=== PATIENT | female | born 1940 | race Caucasian/White ===

== ENCOUNTER → 2017-04-18 | Outpatient (CLI) | payer OTHER, MEDICARE ==
[~2017-04-18] MED LIST: ACETAMINOPHEN-1 EAC1 PO; AMBIEN 5 MG TABL5 M1 PO; ANTACID SUSPEN355 M1 PO; APAP500 PO; ASPIR 8181 M1 PO; B-50 COMPLEX1 EAC1 PO; BACTRIM DS TAB1 EACH PO; BALANCE B-1001 EACH PO; BENADRYL25 MG PO; CALTRATE-600 W1 EACH PO; CELEXA10 MG PO; CENTRUM COMPLE1 EACH PO; CENTRUM SILVER1 EAC4 PO; CHONDROITIN SU500 G1 MC; COLACE100 MG PO; COREG6.25 MG PO; D-20002000 UNIT PO; FENOFIBRATE145 M1 PO; FOLGARD TABLET1 EAC1 PO; FUROSEMIDE 40 M40 M1 PO; GLUCOPHAGE XR500 MG PO; GLUCOSAMINE CH1 EAC2 PO; GLUCOSAMINE HC500 MG PO; HYDRALAZINE 10M10 MG PO; HYDROCODONE-AP1 EAC6 PO; IBUPROFEN 200200 M1 PO; LANSOPRAZOLE15 MG PO; LASIX 40 MG TAB40 M2 PO; LAXATIVE5 M1 PO; LISINOPRIL10 MG PO; LISINOPRIL20 MG PO; LISINOPRIL5 MG PO; MEDROL32 MG; MELATONIN10 M1 PO; MIRALAX17 GM PO; NORVASC5 MG PO; OCEAN104 ML NASAL; PENTOXIFYLLINE400 MG PO; PHENERGAN 25 MG25 M1 PO; PLAVIX 75 MG TA75 M1 PO; POTASSIUM20 PO; PREDNISONE 10 M10 MG PO; PREVACID 24HR15 MG PO; PROVENTIL HFA6.7 G1 INH; PSYLLIUM FIBE0.52 GM PO; REMERON15 M2 PO; REMERON15 MG PO; RIFAMPIN 300 M300 M1 PO; SPIRONOLACTONE25 M1 PO; TRICOR145 MG PO; TUMS PO; TYLENOL EXTRA500 MG PO; TYLENOL325 MG PO; UNICOMPLEX M TA1 TA1 PO; VANCO 750750 MG/250 IV; VITAMINC500 PO; ZYRTEC10 M5 PO; [UNRECOGNIZED DRUG - OTHER] PO
== END ==
LOC: M.WC 01:24
DX: E11.621 Type 2 diabetes mellitus with foot ulcer (principal); L97.511 Non-pressure chronic ulcer of other part of right foot limited to breakdown of skin; L97.521 Non-pressure chronic ulcer of other part of left foot limited to breakdown of skin; I70.245 Atherosclerosis of native arteries of left leg with ulceration of other part of foot; I87.312 Chronic venous hypertension (idiopathic) with ulcer of left lower extremity; I11.0 Hypertensive heart disease with heart failure; I50.9 Heart failure, unspecified; E11.36 Type 2 diabetes mellitus with diabetic cataract; J45.909 Unspecified asthma, uncomplicated; M06.9 Rheumatoid arthritis, unspecified; F17.200 Nicotine dependence, unspecified, uncomplicated

== ENCOUNTER → 2017-05-02 | Outpatient (CLI) | payer OTHER, MEDICARE | LOC: M.WC 04-25 10:00 | DX: E11.621 Type 2 diabetes mellitus with foot ulcer (principal); L97.511 Non-pressure chronic ulcer of other part of right foot limited to breakdown of skin; L97.521 Non-pressure chronic ulcer of other part of left foot limited to breakdown of skin; E11.36 Type 2 diabetes mellitus with diabetic cataract; I11.0 Hypertensive heart disease with heart failure; I50.9 Heart failure, unspecified; M06.9 Rheumatoid arthritis, unspecified; J45.909 Unspecified asthma, uncomplicated; F17.200 Nicotine dependence, unspecified, uncomplicated ==

== ENCOUNTER → 2017-05-09 | Outpatient (CLI) | payer OTHER, MEDICARE | LOC: M.WC 01:36 | DX: E11.621 Type 2 diabetes mellitus with foot ulcer (principal); I70.245 Atherosclerosis of native arteries of left leg with ulceration of other part of foot; I70.235 Atherosclerosis of native arteries of right leg with ulceration of other part of foot; I87.313 Chronic venous hypertension (idiopathic) with ulcer of bilateral lower extremity; L97.511 Non-pressure chronic ulcer of other part of right foot limited to breakdown of skin; L97.521 Non-pressure chronic ulcer of other part of left foot limited to breakdown of skin; E11.36 Type 2 diabetes mellitus with diabetic cataract; I11.0 Hypertensive heart disease with heart failure; I50.9 Heart failure, unspecified; M06.9 Rheumatoid arthritis, unspecified; J45.909 Unspecified asthma, uncomplicated; F17.200 Nicotine dependence, unspecified, uncomplicated ==

== ENCOUNTER 2017-05-16 14:03 | Inpatient (IN) | payer MEDICARE, OTHER ==
[~2017-05-16] VITALS: Ht 157.5 cm; Wt 86.6 kg
--- NOTE | ~2017-05-16 | EKG ---
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: : 1940 Requested By: Ebony Novak Order Number: [id number] Reading MD: Measurements Intervals Lillie Rate: 56 P: 14 IN: 186 QRS: -34 QRSD: 128 T: 61 QT: 497 QTc: 480 Interpretive Statements Sinus rhythm Atrial premature complexes in couplets Sinus pause Right bundle branch block Inferior infarct, old Compared to ECG 05/16/2017 14:26:50 Atrial premature complex(es) now present Sinus pause or arrest now present Myocardial infarct finding now present First degree AV block no longer present [email or web address] By: [id number] [place], [place] /EPI
--- NOTE | ~2017-05-16 | EKG ---
[place] [address] ELECTROCARDIOGRAM REPORT Name: TAMARA MOREAU Room: [place] [address] ADM IN .R.#: [id number] Admission: 05/16/17 Attend Phys: Chace Goodman Discharge: Date of : 40 Report #: [id number] THIS REPORT FOR: //name// [facility] ED Test Date: 2017-05-16 Test Time: 14:26:50 Pat Name: TAMARA MOREAU Department: Room: [facility] Gender: F Glost Kiln Operator: Sally WALLACE : 1940 Requested By: Maximiliano Gloria Order Number: [id number] MD: Measurements Intervals [place] Rate: 70 P: 15 OK: 212 QRS: -28 QRSD: 135 T: 29 QT: 405 QTc: 437 Interpretive Statements Sinus rhythm Borderline prolonged OK interval Right bundle branch block Compared to ECG 04/15/2009 11:01:47 Sinus arrhythmia no longer present Left anterior fascicular block no longer present Bifascicular block no longer present Myocardial infarct finding no longer present [email or web address] By: [id number] [id number] [place], [place] /AUTUMN
[~2017-05-16 14:03] MED LIST changes: -ACETAMINOPHEN-1 EAC1 PO; -AMBIEN 5 MG TABL5 M1 PO; -ANTACID SUSPEN355 M1 PO; -BACTRIM DS TAB1 EACH PO; -BALANCE B-1001 EACH PO; -BENADRYL25 MG PO; -CELEXA10 MG PO; -CENTRUM SILVER1 EAC4 PO; -COLACE100 MG PO; -FENOFIBRATE145 M1 PO; -FOLGARD TABLET1 EAC1 PO; -FUROSEMIDE 40 M40 M1 PO; -GLUCOSAMINE CH1 EAC2 PO; -HYDRALAZINE 10M10 MG PO; -LAXATIVE5 M1 PO; -LISINOPRIL10 MG PO; -LISINOPRIL5 MG PO; -MELATONIN10 M1 PO; -MIRALAX17 GM PO; -NORVASC5 MG PO; -OCEAN104 ML NASAL; -PHENERGAN 25 MG25 M1 PO; -PREVACID 24HR15 MG PO; -PSYLLIUM FIBE0.52 GM PO; -REMERON15 M2 PO; -RIFAMPIN 300 M300 M1 PO; -SPIRONOLACTONE25 M1 PO; -TRICOR145 MG PO; -TUMS PO; -TYLENOL EXTRA500 MG PO; -TYLENOL325 MG PO; -UNICOMPLEX M TA1 TA1 PO; -VANCO 750750 MG/250 IV; -[UNRECOGNIZED DRUG - OTHER] PO
[2017-05-16 14:08] VITALS: BP 145/46
[2017-05-16] MEDS ORDERED: SPIRONOLACTONE25 M1 PO (14:26)
[2017-05-16] MEDS ORDERED: HYDRALAZINE 10M10 MG PO (14:26)
[2017-05-16] MEDS ORDERED: TRICOR145 MG PO (14:27)
[2017-05-16] MEDS ORDERED: NORVASC5 MG PO (14:27)
[2017-05-16 14:28] LABS: ABSOLUTE EOSINOPHILS 0.1 thou/uL (0.0-0.7); ABSOLUTE LYMPHOCYTES 0.7 thou/uL (0.8-5.3); ABSOLUTE MONOCYTES 0.3 thou/uL (0.0-1.2); BASOPHILS 0.9 %; EOSINOPHILS 1.9 %; HEMATOCRIT 34.6 % (37.0-47.0); HEMOGLOBIN 10.9 gm/dL (12.0-15.0); LYMPHOCYTES 13.2 %; MCH 29.2 pg (26.0-34.0); MCHC 31.6 g/dL (28.0-37.0); MCV 92.6 fL (80.0-100.0); MONOCYTES 5.9 %; MPV 9.4 fl. (7.2-11.1); NUCLEATED RBCS 0 /100WBC; PLATELET COUNT* 104 thou/uL (150-400); POLYS 78.1 %; RBC 3.74 mil/uL (4.20-5.00); RDW-CV 15.4 % (10.5-14.5); WBC 5.2 thou/uL (4.0-11.0)
[2017-05-16] MEDS ORDERED: CENTRUM SILVER1 EAC4 PO (14:29)
[2017-05-16] MEDS ORDERED: GLUCOSAMINE CH1 EAC2 PO (14:30)
[2017-05-16 14:33] LABS: ANION GAP 10 mmol/L (7-16); BUN 55 mg/dL (7-18); CHLORIDE 106 mmol/L (98-107); CO2 24 mmol/L (21-32); CREATININE 3.2 mg/dL (0.6-1.3); GLUCOSE 114 mg/dL (70-99); POTASSIUM 5.3 mmol/L (3.5-5.1); SODIUM 140 mmol/L (136-145)
[2017-05-16] MEDS ORDERED: BALANCE B-1001 EACH PO (14:34)
[2017-05-16 14:36] LABS: INR 1.3; PROTIME 12.3 Seconds (9.20-11.50)
[2017-05-16] MEDS ORDERED: [UNRECOGNIZED DRUG - OTHER] PO (14:38)
[2017-05-16] MEDS ORDERED: TYLENOL EXTRA500 MG PO (14:41)
[2017-05-16] MEDS ORDERED: BACTRIM DS TAB1 EACH PO (14:42)
[2017-05-16] MEDS ORDERED: BENADRYL25 MG PO (14:42)
[2017-05-16 14:43] LABS: ALBUMIN 3.7 g/dL (3.4-5.0); ALKALINE PHOSPHATASE 51 U/L (46-116); NT-PRO BRAIN NAT PEPTIDE 2595 pg/mL (<300); SGOT 23 U/L (15-37); SGPT 13 U/L (30-65); TOTAL BILIRUBIN 0.3 mg/dL (<0.1-1.0); TROPONIN-I LEVEL <0.06 ng/mL (<0.06)
[2017-05-16 18:39] VITALS: BP 147/36
[2017-05-16 20:00] VITALS: BP 160/47
[2017-05-17] VITALS: BP 128/47
[2017-05-17 02:47] LABS: HEMATOCRIT 30.8 % (37.0-47.0); HEMOGLOBIN 9.9 gm/dL (12.0-15.0); MCH 29.2 pg (26.0-34.0); MCV 91.4 fL (80.0-100.0); RBC 3.37 mil/uL (4.20-5.00); RDW-CV 15.2 % (10.5-14.5); WBC 4.5 thou/uL (4.0-11.0)
[2017-05-17 02:56] LABS: CALCIUM 8.5 mg/dL (8.5-10.1); POTASSIUM 5.5 mmol/L (3.5-5.1)
[2017-05-17 04:00] VITALS: BP 108/40
[2017-05-17 08:04] VITALS: BP 104/32
[2017-05-17 11:48] VITALS: BP 125/31
[2017-05-17 12:13] LABS: URINE BILIRUBIN NEGATIVE (Negative); URINE BLOOD NEGATIVE (Negative); URINE CLARITY SL CLOUDY; URINE COLOR YELLOW; URINE GLUCOSE-RANDOM NEGATIVE (Negative); URINE KETONES NEGATIVE (Negative); URINE LEUKOCYTES 1+ (Negative); URINE NITRITE NEGATIVE (Negative); URINE PROTEIN NEGATIVE (Negative); URINE SPECIFIC GRAVITY 1.025 (1.005-1.030); URINE UROBILINOGEN 0.2 E.U./dl (0.2-1.0)
[2017-05-17 12:16] LABS: BACTERIA 1-9 Few /HPF (None Seen); CASTS None Seen /LPF (None Seen); CRYSTALS None Seen /LPF (None Seen); SQUAMOUS >10 Many /LPF (0-3); TRANSITIONAL EPITHEL CELL 0-3 Few /LPF (None Seen); URINE RBC 3-10 Few /HPF (0-2)
[2017-05-17 15:23] VITALS: BP 100/34
--- NOTE | 2017-05-17 16:32 | 2DMMODE ---
[place] [address] 2 D/M-MODE ECHOCARDIOGRAM Name: LIZZETHTAMARA M Room: [place] [address] ADM IN [facility]#: [id number] Admission: 05/16/17 Attend Phys: Ebony Novak Discharge: Date of : 40 Date of Service: 05/17/17 1632 Report #: [id number] THIS REPORT FOR: //name// ADDENDUM APPROVED REPORT Study performed: 05/17/2017 15:10:47 EXAM: Comprehensive 2D, Doppler, and color-flow Echocardiogram Patient Location: In-Patient Room #: [facility] Status: routine BSA: 1.86 HR: 78 bpm BP: 104/32 mmHg Rhythm: NSR Other Information Study Quality: Good Indications Congestive Heart Failure Dyspnea Hypertension/HDD 2D Dimensions LVEF(%): 72.97 (>50%) IVSd: 14.47 (7-11mm) LVOT Diam: 20.22 (18-24mm) LVDd: 38.26 mm PWd: 13.53 (7-11mm) Ascending Ao: 46.68 (22-36mm) LVDs: 22.43 (25-40mm) Aortic Root: 34.70 mm Lopes's LVEF: 72.97 % Volumes Left Atrial Volume (Systole) LA ESV Index: 45.20 mL/m2 Aortic Valve AoV Peak Vamsi.: 1.93 m/s AO Peak Gr.: 14.87 mmHg LVOT Max P.73 mmHg AO Mean Gr.: 7.59 mmHg LVOT Mean P.21 mmHg LVOT Max V: 1.30 m/s AO V2 VTI: 42.04 cm LVOT Mean V: 0.82 m/s SELMA (VTI): 2.27 cm2 LVOT V1 VTI: 29.66 cm AI [place]: 2.28 m/s2 [place] [address] 2 D/M-MODE ECHOCARDIOGRAM Name: TAMARA MOREAU Room: [address] IN .R.#: [id number] Admission: 05/16/17 Attend Phys: Ebony Novak Discharge: Date of : 40 Date of Service: 05/17/17 1632 Report #: [id number] AI PHT: 411.99 ms Mitral Valve E/A Ratio: 2.04 MV Decel. Time: 190.62 ms MV E Max Vamsi.: 1.39 m/s MV PHT: 55.28 ms MVA (PHT): 3.98 cm2 TDI E/Lateral E': 17.38 E/Medial E': 17.38 Medial E' Vamsi.: 0.08 m/s Lateral E' Vamsi.: 0.08 m/s Pulmonary Valve PV Peak Vamsi.: 1.09 m/s PV Peak Gr.: 4.79 mmHg Tricuspid Valve TR Peak Gr.: 18.79 mmHg RVSP: 23.00 mmHg Left Ventricle The left ventricle is normal size. There is normal LV segmental wall motion. Mild concentric left ventricular hypertrophy. Left ventricular systolic function is normal. LVEF is >70%. Severe diastolic dysfunction is present (restrictive filling). Right Ventricle The right ventricle is normal size. The right ventricular systolic function is normal. Atria Left atrium is moderately dilated. The right atrium size is normal. Aortic Valve Mild aortic valve sclerosis. Moderate aortic regurgitation. There is no aortic valvular stenosis. Mitral Valve There is mitral annular calcification. Mild mitral regurgitation. No evidence of mitral valve stenosis. Tricuspid Valve The tricuspid valve is normal in structure. Trace tricuspid regurgitation. The RVSP is ____23___ [place] [address] 2 D/M-MODE ECHOCARDIOGRAM Name: TAMARA MOREAU Room: [address] IN [facility]#: [id number] Admission: 05/16/17 Attend Phys: Ebony Novak Discharge: Date of : 40 Date of Service: 05/17/17 1632 Report #: [id number] Pulmonic Valve The pulmonary valve is normal in structure. There is no pulmonic valvular regurgitation. Great Vessels Aortic root is moderately dilated. IVC is normal in size and collapses with >50% inspiration Pericardium There is no pericardial effusion. <Conclusion> The left ventricle is normal size. Mild concentric left ventricular hypertrophy. Left ventricular systolic function is normal. LVEF is >70%. Severe diastolic dysfunction is present (restrictive filling). Left atrium is moderately dilated. Mild aortic valve sclerosis. Moderate aortic regurgitation. Mild mitral regurgitation. Trace tricuspid regurgitation. The RVSP is ____23___ mmHg. Aortic root is moderately dilated. <ELECTRONICALLY SIGNED> By: Saurabh Chávez MD, FACC 05/17/17 163 31 31 Saurabh Chávez MD, FACC /INF
[2017-05-17 20:00] VITALS: BP 106/39
[2017-05-18 00:02] VITALS: BP 98/32
[2017-05-18 04:00] VITALS: BP 95/32
[2017-05-18 05:44] LABS: ALBUMIN 3.1 g/dL (3.4-5.0); CALCIUM 8.5 mg/dL (8.5-10.1); CREATININE 3.4 mg/dL (0.6-1.3); POTASSIUM 5.7 mmol/L (3.5-5.1); TOTAL BILIRUBIN 0.3 mg/dL (<0.1-1.0); TOTAL PROTEIN 6.9 g/dL (6.4-8.2)
--- NOTE | 2017-05-18 07:30 | CON ---
[address] [address] CONSULTATION Name: TAMARA MOREAU Room: [place] [address] ADM IN .R.#: [id number] Admission: 05/16/17 Attend Phys: Chace Goodman Discharge: Date of : 40 Report #: [id number] THIS REPORT FOR: //name// CC: Elizabeth Rojas MD [facility] Ebony Novak TYPE OF REPORT: Cardiology consultation. INDICATION: Anasarca. HISTORY OF PRESENT ILLNESS: The patient is a 76-year-old white female who was seen in our office for hypertension. She has a history of mild nonocclusive coronary artery disease by catheterization remotely. By noninvasive studies, she has had normal left ventricular systolic function with [id number] aortic and mitral insufficiency. She was admitted to the hospital with 3 weeks of gradual volume overload. She now has significant edema extending to the thighs bilaterally. At home, she was taking 20 mg of oral Lasix daily. She has not been known to have significant renal insufficiency; however, on admission, her creatinine is 3.0. She reports adequate urine output. She denies chest pain. She is not having orthopnea or paroxysmal nocturnal dyspnea. She does have significant swelling of her lower extremities extending all the way to her hips. A 12-lead EKG shows sinus rhythm with right bundle-branch block. No acute ST or T-wave abnormalities noted. Cardiac troponins are all unremarkable. PAST MEDICAL HISTORY: 1. Arthritis, rheumatoid. 2. History of diastolic heart failure. 3. Mild nonocclusive coronary artery disease. 4. Type 2 diabetes mellitus. 5. Essential hypertension. 6. Cardiac catheterization in 2009 showing no occlusive coronary artery disease. 7. Gastroesophageal reflux disease. 8. History of heart murmur. 9. Mitral and aortic valvular insufficiency. 10. Peripheral artery disease, status post stenting to the left lower extremity. PAST SURGICAL HISTORY: Stent placement, left lower extremity in July 2016 and tonsillectomy remotely. FAMILY HISTORY: [place] [address] CONSULTATION Name: TAMARA MOREAU Room: [address]#: [id number] Admission: 05/16/17 Attend Phys: Chace Goodman Discharge: Date of : 40 Report #: [id number] SOCIAL HISTORY: The patient smokes 1/3 of a pack of cigarettes daily. Does not drink alcohol. ALLERGIES: Sulfas, which causes hives. HOME MEDICATIONS: Tylenol p.r.n., albuterol inhaler 2 puffs q. 6 hours as needed, amlodipine 5 mg daily, vitamin C 1000 mg daily, B complex tablet daily, baby aspirin daily, calcium with vitamin D supplement 2 tablets daily, carvedilol 25 mg b.i.d., Plavix 75 mg daily, Benadryl 25 mg as directed, Lasix 20 mg daily, glucosamine tablets 750 mg twice daily, hydralazine 10 mg 3 times daily, ibuprofen 200 mg 4 tablets one 3 times daily as needed, lisinopril 40 mg daily, metformin 500 mg daily, Remeron 15 mg nightly, multivitamin, Centrum 1 tablet daily, spironolactone 25 mg daily and vitamin D 2000 unit capsule 2 capsules daily. PHYSICAL EXAMINATION: VITAL SIGNS: Stable. Blood pressure 125/31, pulse in the 70s and regular. GENERAL: This is a pleasant elderly female who does not appear to be in distress. HEENT: Extraocular muscles intact. Mucous membranes are moist. NECK: Shows no jugular venous distention. I do not appreciate carotid bruit. CHEST: Reveals clear breath sounds without wheezes or rales. CARDIOVASCULAR: Reveals a regular rhythm with a grade 2/6 systolic ejection murmur. I do not appreciate gallop. ABDOMEN: Reveals normal bowel sounds. The abdomen is soft and nontender. EXTREMITIES: Shows 2-3+ pitting edema to the thighs bilaterally. SKIN: Warm and dry. RADIOLOGICAL DATA: A 12-lead EKG shows sinus rhythm with right bundle-branch block. Chest x-ray shows some cardiomegaly without obvious pulmonary vascular congestion. LABORATORY DATA: Labs are reviewed. Sodium 141, potassium 5.5, chloride 107, bicarbonate 26, BUN 56 and creatinine 3.0. Serum glucose 99. LFTs within normal limits. Troponin less than 0.06 on 4 separate occasions. NT-pro-BNP 2595. Coags within normal limits. White blood cell count 4.5; hemoglobin 9.9 and platelet count 96,000. IMPRESSION AND RECOMMENDATIONS: 1. Hypertension, well controlled on current regimen. Her lisinopril has been held, likely secondary to acute renal failure. We will follow and make adjustments as needed. We would continue hydralazine at least p.r.n. 2. Gross volume overload. Etiology is not clear. The patient does have acute renal failure. She has a history of diastolic heart failure. We will obtain echocardiogram and evaluate further. At this point, I am hesitant to aggressively diurese that she has acute renal failure. We will ask nephrology [address] [place] [address] CONSULTATION Name: TAMARA MOREAU Room: [address] IN [facility]#: [id number] Admission: 05/16/17 Attend Phys: Chace Goodman Discharge: Date of : 40 Report #: [id number] to see the patient. 3. Nonocclusive coronary artery disease. The patient is not having any symptoms to suggest angina or acute coronary syndrome. We will follow clinically. Continue baby aspirin daily. 4. History of aortic and mitral insufficiency, repeating echocardiogram. 5. Acute renal failure. Nephrology consulted. <ELECTRONICALLY SIGNED> By: Saurabh Chávez MD, FACC 05/18/17 0730 1528 [id number] Chávez MD, FACC /nt
--- NOTE | 2017-05-18 07:53 | CON ---
[address] [address] CONSULTATION Name: LIZZETHTAMARA Chace Room: [place] [address] ADM IN .R.#: [id number] Admission: 05/16/17 Attend Phys: Chace Goodman Discharge: Date of : 40 Report #: [id number] THIS REPORT FOR: //name// CC: Elizabeth Novak DATE OF SERVICE: 05/17/2017 ATTENDING PHYSICIAN: Dr. Novak. REASON FOR EVALUATION: Pneumonitis, lower extremity wounds complicated by infection with some underlying issue with ischemia. HISTORY OF PRESENT ILLNESS: Chart reviewed, patient examined. This is a 76-year-old woman with history of rheumatoid arthritis and diabetes mellitus who has got significant vasculopathy, who has known cardiomyopathy with congestive heart failure, who presented with progressive dyspnea over the several days prior to her admission, did have some distal swelling, [facility] and is scheduled to have toes amputated next week. On evaluation, she was found to be hypoxemic, saturations in the 80s on room air. It is not clear if she has had significant fevers and some decreased appetite. Lactic acid was 0.9. Blood cultures are sterile thus far. Empirically placed on ceftriaxone and is perhaps mildly encephalopathic. ALLERGIES: CONTRAST DYE, REPORTEDLY TO SULFA, ALTHOUGH SHE HAS BEEN ON BACTRIM JUST PRIOR TO COMING IN. ALSO, HYDROCODONE AND TRAMADOL. CURRENT MEDICATIONS: Includes ceftriaxone, clopidogrel, carvedilol, oxycodone, ondansetron. PAST MEDICAL HISTORY: As noted above, history of hypertension, reflux, asthma, diabetes mellitus, rheumatoid arthritis. SOCIAL HISTORY: Smokes half pack a day of cigarettes, no illicit drug use. No ethanol. FAMILY HISTORY: Noncontributory. REVIEW OF SYSTEMS: As above. Does admit to the shortness of breath. Denies significant abdominal-related complaints. She has had some nausea, although did have anorexia, ate today. There is no significant diarrhea. PHYSICAL EXAMINATION: GENERAL: Alert, mild distress. She is obese, appears chronically ill, undernourished. VITAL SIGNS: Temperature 97.8, pulse 48, respirations 20, [place] [address] CONSULTATION Name: TAMARA MOREAU Room: [address] IN [facility]#: [id number] Admission: 05/16/17 Attend Phys: Chace Goodman Discharge: Date of : 40 Report #: [id number] 125/31. SKIN: Warm, dry. HEENT: Otherwise, unremarkable. NECK: Supple. LUNGS: Scattered coarse breath sounds. HEART: Regular, bradycardic. I do not appreciate murmur. ABDOMEN: Soft, nontender. There are no peritoneal signs. EXTREMITIES: Lower extremities edematous. GENITOURINARY: Deferred. RECTAL: Deferred. LABORATORY DATA: Urinalysis, 6-25 white cells, 1-9 bacteria. Blood culture sterile thus far. Electrolytes: Sodium 141, potassium 5.5, chloride 107, bicarbonate 26, anion gap of 8, BUN and creatinine 56 and 3.0. White count 4.5, H and H 9.9 and 30.8, platelets of 96. Chest x-ray, stable cardiomegaly, bilateral perihilar prominence. ASSESSMENT: Possible pneumonitis, also has known distal lower extremity ischemia complicated by ulcers, secondary infection. Continue therapy for that pending the more definitive treatment of toe amputations. She remains quite tenuous at this point. We will monitor expectantly. Discussed with this patient. We will follow. <ELECTRONICALLY SIGNED> By: Leander Palacios MD 05/18/17 0753 1530 [id number] Palacios MD /nt
[2017-05-18 08:13] VITALS: BP 134/43
[2017-05-18 11:40] VITALS: BP 109/86
[2017-05-18 17:07] VITALS: BP 129/40
[2017-05-18 20:00] VITALS: BP 119/31
[2017-05-19] VITALS: BP 96/26
[2017-05-19 04:50] LABS: HEMOGLOBIN 10.2 gm/dL (12.0-15.0); MCH 29.4 pg (26.0-34.0); MCHC 31.9 g/dL (28.0-37.0); MPV 9.7 fl. (7.2-11.1); RBC 3.48 mil/uL (4.20-5.00); RDW-CV 15.4 % (10.5-14.5); WBC 5.2 thou/uL (4.0-11.0)
[2017-05-19 04:54] VITALS: BP 146/30
[2017-05-19 05:11] LABS: ALBUMIN 3.4 g/dL (3.4-5.0); CALCIUM 8.6 mg/dL (8.5-10.1); MAGNESIUM 2.7 mg/dL (1.8-2.4); TOTAL BILIRUBIN 0.2 mg/dL (<0.1-1.0); TOTAL PROTEIN 7.2 g/dL (6.4-8.2)
[2017-05-19 05:25] LABS: CREATININE 3.3 mg/dL (0.6-1.3)
[2017-05-19 05:27] LABS: POTASSIUM 6.1 mmol/L (3.5-5.1)
[2017-05-19 08:00] VITALS: BP 145/46
[2017-05-19 12:00] VITALS: BP 125/41
[2017-05-19 15:50] VITALS: BP 136/53
[2017-05-19 20:20] VITALS: BP 150/56
[2017-05-20] VITALS: BP 101/41
[2017-05-20 04:27] VITALS: BP 110/27
[2017-05-20 05:06] LABS: HEMOGLOBIN 9.5 gm/dL (12.0-15.0); MCH 29.2 pg (26.0-34.0); MCHC 31.5 g/dL (28.0-37.0); MCV 92.8 fL (80.0-100.0); MPV 10.4 fl. (7.2-11.1); RBC 3.23 mil/uL (4.20-5.00); RDW-CV 15.4 % (10.5-14.5); WBC 5.1 thou/uL (4.0-11.0)
[2017-05-20 05:27] LABS: CALCIUM 8.6 mg/dL (8.5-10.1); MAGNESIUM 2.7 mg/dL (1.8-2.4); POTASSIUM 4.8 mmol/L (3.5-5.1)
[2017-05-20 05:34] LABS: CREATININE 2.3 mg/dL (0.6-1.3)
[2017-05-20 09:30] VITALS: BP 140/44
[2017-05-20 12:00] VITALS: BP 103/34
[2017-05-20 16:00] VITALS: BP 119/32
[2017-05-20 20:00] VITALS: BP 121/32
[2017-05-21] VITALS: BP 115/40
[2017-05-21 03:57] VITALS: BP 123/33
[2017-05-21 05:25] LABS: HEMATOCRIT 29.6 % (37.0-47.0); HEMOGLOBIN 9.5 gm/dL (12.0-15.0); MCH 29.4 pg (26.0-34.0); MPV 10.1 fl. (7.2-11.1); RBC 3.22 mil/uL (4.20-5.00); RDW-CV 14.7 % (10.5-14.5); WBC 4.6 thou/uL (4.0-11.0)
[2017-05-21 05:43] LABS: CALCIUM 8.7 mg/dL (8.5-10.1); CREATININE 1.8 mg/dL (0.6-1.3); POTASSIUM 4.2 mmol/L (3.5-5.1)
[2017-05-21 09:30] VITALS: BP 136/70
[2017-05-21 11:52] VITALS: BP 119/36
[2017-05-21 16:54] VITALS: BP 127/38
[2017-05-21 20:00] VITALS: BP 156/62
[2017-05-22] VITALS: BP 132/33
[2017-05-22 04:19] VITALS: BP 106/28
[2017-05-22 07:45] VITALS: BP 144/40
[2017-05-22 11:55] VITALS: BP 129/26
[2017-05-22 14:11] LABS: CREATININE 1.3 mg/dL (0.6-1.3); POTASSIUM 4.1 mmol/L (3.5-5.1)
[2017-05-22 16:37] VITALS: BP 130/34
[2017-05-22 20:00] VITALS: BP 155/47
[2017-05-23] VITALS (9 sets, daily range): BP systolic 138–180; BP diastolic 43–63
[2017-05-23 05:16] LABS: HEMATOCRIT 30.4 % (37.0-47.0); HEMOGLOBIN 9.7 gm/dL (12.0-15.0); MCH 29.2 pg (26.0-34.0); MCV 91.1 fL (80.0-100.0); MPV 10.6 fl. (7.2-11.1); RBC 3.34 mil/uL (4.20-5.00); RDW-CV 14.9 % (10.5-14.5); WBC 4.7 thou/uL (4.0-11.0)
[2017-05-23 05:45] LABS: CALCIUM 8.8 mg/dL (8.5-10.1); CREATININE 1.2 mg/dL (0.6-1.3); TOTAL BILIRUBIN 0.3 mg/dL (<0.1-1.0); TOTAL PROTEIN 6.5 g/dL (6.4-8.2)
[2017-05-24] VITALS (7 sets, daily range): BP systolic 125–155; BP diastolic 29–66
[2017-05-25] VITALS: BP 155/50
[2017-05-25 05:07] LABS: HEMOGLOBIN 9.7 gm/dL (12.0-15.0); MCH 29.1 pg (26.0-34.0); MCHC 31.4 g/dL (28.0-37.0); MCV 92.6 fL (80.0-100.0); RBC 3.34 mil/uL (4.20-5.00); RDW-CV 15.1 % (10.5-14.5); WBC 5.6 thou/uL (4.0-11.0)
[2017-05-25 05:42] LABS: CALCIUM 8.8 mg/dL (8.5-10.1); CREATININE 1.3 mg/dL (0.6-1.3); MAGNESIUM 2.4 mg/dL (1.8-2.4); POTASSIUM 3.9 mmol/L (3.5-5.1); TOTAL BILIRUBIN 0.3 mg/dL (<0.1-1.0); TOTAL PROTEIN 6.7 g/dL (6.4-8.2)
[2017-05-25 08:00] VITALS: BP 151/38
[2017-05-25] MEDS ORDERED: BENADRYL25 MG PO (10:33)
[2017-05-25] MEDS ORDERED: TYLENOL325 MG PO (10:38)
[2017-05-25] MEDS ORDERED: TUMS PO (10:39)
[2017-05-25] MEDS ORDERED: LAXATIVE5 M1 PO (10:42)
[2017-05-25] MEDS ORDERED: AMBIEN 5 MG TABL5 M1 PO (10:42)
[2017-05-25] MEDS ORDERED: MELATONIN10 M1 PO (10:44)
[2017-05-25] MEDS ORDERED: ANTACID SUSPEN355 M1 PO (10:45)
[2017-05-25] MEDS ORDERED: MIRALAX17 GM PO (10:46)
[2017-05-25] MEDS ORDERED: OCEAN104 ML NASAL (10:46)
[2017-05-25] MEDS ORDERED: PHENERGAN 25 MG25 M1 PO (10:47)
[2017-05-25] MEDS ORDERED: VANCO 750750 MG/250 IV (11:39)
[2017-05-25 15:39] VITALS: BP 152/49
--- NOTE | 2017-05-29 11:56 | S ---
[address] [address] SURGICAL PATH RPT PROCEDURE Name: MARBELLA MOREAU Room: [address] M.R.#: [id number] Admission: 05/16/17 Date of : 40 Discharge: 05/25/17 Report #: [id number] Path Case #: [id number] PATHOLOGY REPORT COLLECTION DATE: 05/23/2017 RECEIVED DATE: 05/24/2017 SUBMITTING PHYS: Dr. Gus Dow OTHER PHYS: Dr. Ebony Cordova APRN SPECIMEN(S) RECEIVED: A.R 4th and 5th ray resection B.L transmetarsal 3rd, 4th, and 5th toes * * * * * * * * * * * * FINAL DIAGNOSIS: Toes "right fourth and fifth ray resection": - Acute ulceration with necrotic acute inflammatory exudate extending deeply into the underlying bone with acute osteomyelitis. The inked surgical resection margins bone and soft tissue appear viable with no obvious acute inflammation. - However, the skin margin is close to 2 millimeter from the ulceration. B. Toes, "left metatarsal third, fourth, and fifth toes": - Ulceration deeply penetrating with underlying fibrosis and chronic inflammation. - Bony changes reveal fibrosis with chronic inflammation and chronic osteomyelitis. -. All surgical resection margins are viable and free of inflammation. (SHA:lorenzo; 05/28/2017) COMMENT: Part A was also reviewed by Dr. Donaldo Richmond PATHOLOGIST: Raza Ahmed, M.D. REPORT ELECTRONICALLY SIGNED BY: Raza Henriquez M.D. DATE/TIME: 05/29/2017 11:55 * * * * * * * * * * * * GROSS PATHOLOGY: A. The specimen is received in formalin labeled "Marbella Moreau, right fourth and fifth ray resection". Received is an amputated digit measuring 4.5 x 1.9 x 1.8 cm in greatest dimensions. The bone margin is jagged in appearance. The bone and soft tissue margins are inked black. The nail is present displaying a light rios and thickened appearance. The epidermal [place] [address] SURGICAL PATH RPT PROCEDURE Name: MARBELLA MOREAU Room: [address] IN [facility].#: [id number] Admission: 05/16/17 Date of : 40 Discharge: 05/25/17 Report #: [id number] Path Case #: [id number] [id number] necrotic-appearing lesion proximal to the nail measuring 3.3 x 2.1 cm, which grossly abuts the inked margin. Also received within the specimen container is the distal aspect of an additional toe measuring 2.2 x 2.1 1.2 cm in greatest dimensions. The bone margin is not grossly identified. The soft tissue margin is inked black. The nail is present displaying a pale rios and grossly unremarkable appearance. There are also multiple segments of bone present, some of which display smooth, convex articulating surfaces, measuring 4.6 x 3.5 x 1.5 cm in aggregate dimensions. The specimen is submitted representatively as follows: A1-A2 full-length longitudinal cross-section of intact toe, submitted from proximal to distal aspects, following decalcification A3 full-length longitudinal cross-section of distal aspect of additional toe, following decalcification A4 livestock sales representative sections of separately submitted bone, to include articulating surfaces, following decalcification. B. The specimen is received in formalin labeled "Marbella Moreau, left transmetatarsal resection third, fourth, and fifth toes". Received are three toes, which are attached to each other, ranging in size from 2.5 x 1.4 x 1.3 to 3.5 x 2.2 x 2.0 cm in greatest dimensions. The bone margins of the larger two toes are smooth and concave in appearance, consistent with disarticulation, and the bone margin of the smaller toe is jagged in appearance. The bone and soft tissue margins are inked black. The nails are present on all three toes, displaying a pale rios and grossly unremarkable appearance. The epidermal surface of the larger toe is pale rios and slightly wrinkled in appearance. The epidermal surface of the second toe displays a lesion on the lateral aspect, which is well-circumscribed, irregular in contour, focally crusted and light brown measuring 1.1 x 0.9 cm, which is 1.5 cm from the inked margin. The epidermal surface of the smaller toe is pale rios and slightly wrinkled in appearance. Also received within the specimen container are three separately submitted segments of bone, all of which display one smooth convex margin, consistent with disarticulation, and one jagged margin, ranging in size from 0.9 x 0.8 x 0.7 to 1.4 x 1.2 x 1.0 cm. The jagged margins are inked black. The specimen is submitted representatively as follows: B1-B2 full-length longitudinal cross-section of larger toe, from proximal to distal aspects, following decalcification B3-B4 full-length longitudinal cross-section of second toe, from proximal to distal aspects, following decalcification B5-B6 full-length longitudinal cross-section of third toe, from proximal to distal aspects, following decalcification B7 livestock sales representative section of skin lesion from second toe to show relationship with inked margin B8 livestock sales representative sections of separately submitted segments of bone, following decalcification. (CAA; 05/25/2017) [place] [address] SURGICAL PATH RPT PROCEDURE Name: MARBELLA MOREAU Room: [address] M.R.#: [id number] Admission: 05/16/17 Date of : 40 Discharge: 05/25/17 Report #: [id number] Path Case #: [id number] CLINICAL HISTORY: Atherosclerosis of arteries of extremities INITIAL CPT CODE(S): A; 29927, 07092 B; 78676, 54845 Professional services performed [place] [address] Technical services performed by [facility] at [address] [place] [address], [facility] [[email or web address]] [address], [place] [address]. [facility] [address] [place] [address] PHONE: [phone] DIRECTOR: Raul Mendoza M.D. * * * END OF REPORT * * *
--- NOTE | 2017-05-30 10:41 | CON ---
[address] [address] CONSULTATION Name: TAMARA MOREAU Chace Room: [address] IN ..#: [id number] Admission: 05/16/17 Attend Phys: Chace Goodman Discharge: 05/25/17 Date of : 40 Report #: [id number] THIS REPORT FOR: //name// CC: Elizabeth Novak DATE OF SERVICE: 05/17/2017 REQUESTING PHYSICIAN: Ebony Novak M.D. REASON FOR CONSULTATION: Acute kidney injury. HISTORY OF PRESENT ILLNESS: The patient is a 76-year-old female with medical history significant for severe peripheral artery disease, history of wounds in both feet. She also has a history of hypertension, history of rheumatoid arthritis. She presents to the hospital with complaints of some shortness of breath and increased lower extremity edema. The patient's creatinine was 3.0 and her baseline of renal function is normal. I have reviewed her labs and find out that she was on ibuprofen 800 mg p.o. 3 times a day and lisinopril. The patient used to see a lands resource manager many years ago and she was treated with Remicade and methotrexate, but apparently she could not tolerate methotrexate and she could not afford Remicade, so she stopped going to a lands resource manager. FAMILY HISTORY: Negative for renal disease. SOCIAL HISTORY: No tobacco or alcohol abuse. MEDICATIONS: Reviewed from my standpoint, she was on lisinopril and ibuprofen. REVIEW OF SYSTEMS: Positive for some shortness of breath, increased lower extremity edema, low energy level. She does not have chest pain, no fever, no chills. She does have some cough, but without sputum. No changes in visual or hearing acuity. She does have some lower extremity edema and significant deformities of both wrists. PHYSICAL EXAMINATION:0 GENERAL: Awake, alert, oriented. VITAL SIGNS: Blood pressure is 104/32, heart rate is 74, afebrile. HEENT: Pupils are round. NECK: Fatty. LUNGS: Decreased air movements and few crackles at both bases. CARDIOVASCULAR: Regular rate. ABDOMEN: [place] [address] CONSULTATION Name: TAMARA MOREAU Room: [address]#: [id number] Admission: 05/16/17 Attend Phys: Chace Goodman Discharge: 05/25/17 Date of : 40 Report #: [id number] EXTREMITIES: Lower extremities was +1 to 2+ edema. She has ulnar deviation of both wrists. IMAGING: Her chest x-ray showed some cardiomegaly with bilateral perihilar prominence. LABORATORY DATA: Lab report revealed a hemoglobin of 9.9, platelets 96,000. Serum sodium 141, potassium 5.5, chloride 107, carbon dioxide 26, BUN 56, creatinine 3.0. Urinalysis pending. ASSESSMENT: 1. A 76-year-old female with acute kidney injury, which is most likely due to chronic use of nonsteroidals. She was on ibuprofen 800 mg 3 times a day. 2. Fluid retention, likely due to renal failure. 3. Severe rheumatoid arthritis. 4. History of hypertension. PLAN: 1. At this point, she is fluid overloaded due to renal problems. I will give her another dose of Lasix, but we will decide on the diuretics on a day to day basis. 2. Stop her nonsteroidal, so we will not use nonsteroidals in the future. 3. Stop her lisinopril for now. 4. Obtain renal ultrasound. 5. Discussed this case with Dr. Novak with the patient and with the patient's daughter. Thank you very much for asking my opinion on the patient's acute kidney injury. <ELECTRONICALLY SIGNED> By: Chuck Logan MD 05/30/17 1041 [id number] Logan MD /[facility]
--- NOTE | 2017-06-02 14:18 | OP ---
[address] [address] OPERATIVE REPORT Name: TAMARA MOREAU Chace Room: [address] IN M.R.#: [id number] Admission: 05/16/17 Attend Phys: Chace Goodman Discharge: 05/25/17 Date of : 40 Report #: [id number] THIS REPORT FOR: //name// CC: Elizabeth Novak DATE OF SERVICE: 05/23/2017 PREOPERATIVE DIAGNOSES: Peripheral vascular disease, gangrene bilaterally. POSTOPERATIVE DIAGNOSES: Peripheral vascular disease, gangrene bilaterally. SURGEON: Gus Dow DO INSIDE SALES SUPERVISOR: None. PROCEDURE: 1. Left completion transmetatarsal amputation of toes 3, 4 and 5. 2. Right fourth and fifth ray amputation. ESTIMATED BLOOD LOSS: 50 mL. SPECIMEN: Bilateral toes as described above. COMPLICATIONS: None. CONDITION: Stable. DISPOSITION: Floor. INDICATIONS FOR THE PROCEDURE AND CONSENT: The patient is a 76-year-old female with a history of peripheral vascular disease, diabetes mellitus and hammertoe malformation bilaterally. The patient has been followed in wound care center and has previously healed left fourth toe ulceration, but has redeveloped this. Additionally, she developed necrosis of the right fourth toe with anterior necrosis on to the dorsum of the foot. These have failed to heal with nonoperative wound care management and the patient had a significant pain as well. Recommendation for amputations as described above was discussed with the patient. Risks and benefits were discussed including infection, bleeding, nonhealing, need for additional procedures including major amputation. The patient wished to proceed, was consented and scheduled. PROCEDURE IN DETAIL: After timeout was performed, the patient was placed in supine position with circumferential sterile prep and drape of the bilateral lower extremities. Procedure was started on the left foot. A standard transverse incision was made with 10 blade scalpel at the base of the toes, [place] [address] OPERATIVE REPORT Name: TAMARA MOREAU Chace Room: [address] IN [facility]#: [id number] Admission: 05/16/17 Attend Phys: Chace Goodman Discharge: 05/25/17 Date of : 40 Report #: [id number] circumferentially. Using Bovie electrocautery, flaps were created anteriorly and posteriorly back to the metatarsophalangeal joint and toes transected at this point and discarded. The flaps were developed additionally using Bovie electrocautery and each of the transmetatarsal head was transected with bone cutter and the bone was quite soft and had the feeling of osteoporosis. There did not appear to be any infection or concern with regard to that. The metatarsal heads were sent with the toe amputation specimen. These were rongeured to bevel and avoid any sharp protuberance towards the skin. Tendons were elongated and transected so that they would not be a part of the wound or incision closure. Wound was then copiously irrigated with antibiotic saline and closed in layers using 2-0 Vicryl and naresh. Attention was then turned to the right foot. The right fourth toe was wedged out from the anterior position using a 10 blade scalpel and transection at the base of the toe and debriding all necrosed skin and tendon with a 15 blade scalpel. The metatarsal bone was transected proximally within the wound and the toe sent as a specimen. At this point, the foot was inspected for best line of incision for closure. Due to the shape of the wound, this was actually most difficult portion of the procedure, eventually determined a lateral line and using a 10 blade scalpel, excised the bone within the fifth toe and transected just the tip of the fifth toe to preserve skin to be made available for the closure. This was eventually trimmed and tailored to fit. The fourth and fifth metatarsals were transected using bone cutter similar to the other side, were quite soft and osteoporotic. Wound bed was then irrigated. Tendons were excised and soft tissues were then closed in layers using 2-0 Vicryl, naresh as well. Two 2-0 nylon sutures were used in one tenuous area and of concern. This was discussed with the family postoperatively. The sterile dressings were applied bilaterally with Xeroform, Kerlix and Anthony compression and postoperative shoes provided in recovery. The patient tolerated the procedure well. Lap, needle, instrument counts were correct. The patient was transferred to recovery in stable condition. <ELECTRONICALLY SIGNED> By: Gus Dow DO 06/02/17 1418 [id number] 15Gus Dow DO /nt
== END 2017-05-25 16:15 | DRG 239 ==
LOC: M.ERS 14:03 → M.2W 15:27 → M.TBA-ER 15:27 → M.2W 19:09
PROVIDERS: Emergency Medicine Emergency Medical Services; Family Medicine; Internal Medicine; Internal Medicine Nephrology; ADMIT Internal Medicine
DX: I13.0 Hypertensive heart and chronic kidney disease with heart failure and stage 1 through stage 4 chronic kidney disease, or unspecified chronic kidney disease (principal); N17.0 Acute kidney failure with tubular necrosis; J96.01 Acute respiratory failure with hypoxia; J18.9 Pneumonia, unspecified organism; I50.21 Acute systolic (congestive) heart failure; E11.52 Type 2 diabetes mellitus with diabetic peripheral angiopathy with gangrene; E44.0 Moderate protein-calorie malnutrition; N39.0 Urinary tract infection, site not specified; J44.0 Chronic obstructive pulmonary disease with (acute) lower respiratory infection; I42.9 Cardiomyopathy, unspecified; M06.9 Rheumatoid arthritis, unspecified; K21.9 Gastro-esophageal reflux disease without esophagitis; N18.3 Chronic kidney disease, stage 3 (moderate); E87.5 Hyperkalemia; R93.8 Abnormal findings on diagnostic imaging of other specified body structures; N85.2 Hypertrophy of uterus; I25.10 Atherosclerotic heart disease of native coronary artery without angina pectoris; F17.210 Nicotine dependence, cigarettes, uncomplicated; E66.9 Obesity, unspecified; E78.5 Hyperlipidemia, unspecified; Z68.35 Body mass index [BMI] 35.0-35.9, adult; Z95.820 Peripheral vascular angioplasty status with implants and grafts; Z95.5 Presence of coronary angioplasty implant and graft; Z79.82 Long term (current) use of aspirin; Z79.84 Long term (current) use of oral hypoglycemic drugs; Z79.899 Other long term (current) drug therapy; Z88.2 Allergy status to sulfonamides; Z88.8 Allergy status to other drugs, medicaments and biological substances; Z91.041 Radiographic dye allergy status

== ENCOUNTER 2017-05-25 14:18 | Inpatient (IN) | payer MEDICARE, OTHER ==
[~2017-05-25] VITALS: Ht 157.5 cm; Wt 131.5 kg
[~2017-05-25 14:18] MED LIST changes: +AMBIEN 5 MG TABL5 M1 PO; +ANTACID SUSPEN355 M1 PO; +BACTRIM DS TAB1 EACH PO; +BALANCE B-1001 EACH PO; +BENADRYL25 MG PO; +CENTRUM SILVER1 EAC4 PO; +GLUCOSAMINE CH1 EAC2 PO; +HYDRALAZINE 10M10 MG PO; +LAXATIVE5 M1 PO; +MELATONIN10 M1 PO; +MIRALAX17 GM PO; +NORVASC5 MG PO; +OCEAN104 ML NASAL; +PHENERGAN 25 MG25 M1 PO; +SPIRONOLACTONE25 M1 PO; +TRICOR145 MG PO; +TUMS PO; +TYLENOL EXTRA500 MG PO; +TYLENOL325 MG PO; +VANCO 750750 MG/250 IV; +[UNRECOGNIZED DRUG - OTHER] PO
--- NOTE | 2017-05-25 19:52 | NUR ---
76 YEAR OLD FEMALE ADMITTED TO ROOM 328 WITH BILATERAL TOE AMPUTATIONS. PT HAS BEEN A/O X4, ADMISSION PROCESS COMPLETED. HOURLY ROUNDING AND FALL PRECAUTIONS IMPLEMENTED. PT IS ABLE TO TRANSFER WITH FROM RECLINER TO BEDSIDE COMMMODE WITH A GAIT BELT AND WALKER, SHE MOVES VERY SLOWLY BUT IS STEADY ON HER FEET. PT HAD 2 TOES REMOVED FROM THE LEFT FOOT 2 MONTHS AGO AND THE OTHER THREE THIS HOSPITALIZATION. SHE ALSO HAD 2 TOES REMOVED FROM THE RIGHT FOOT THIS STAY. BOTH FEET ARE WRAPPED, PICTURES FROM TELEMETRY PLACED ON CHART. PRN PAIN MEDICATION GIVEN WITH GOOD RESULTS.
[2017-05-25 20:22] VITALS: BP 169/29
[2017-05-26 05:29] VITALS: BP 189/46; BP 289/46
--- NOTE | 2017-05-26 05:40 | NUR ---
ASSUMED CARE OF PT AT 1900 ALERT AND ORIENTED X4. VS AND ASSESSMENT AT BASELINE FOR PT. BILATERAL FOOT DRSGS CDI. PT STANDBY ASSIST WITH WALKER AND GB TO BEDSIDE COMMODE. PT SLEPT THROUGH THE NIGHT. WILL CONTINUE PLAN OF CARE.
[2017-05-26 06:17] LABS: HEMATOCRIT 31.4 % (37.0-47.0); MCH 29.1 pg (26.0-34.0); MCHC 31.8 g/dL (28.0-37.0); MCV 91.7 fL (80.0-100.0); MPV 9.9 fl. (7.2-11.1); RBC 3.42 mil/uL (4.20-5.00); WBC 4.7 thou/uL (4.0-11.0)
[2017-05-26 06:28] LABS: CALCIUM 8.8 mg/dL (8.5-10.1); POTASSIUM 3.9 mmol/L (3.5-5.1)
[2017-05-26 08:09] VITALS: BP 161/41
[2017-05-26 16:45] VITALS: BP 148/42
--- NOTE | 2017-05-26 17:55 | NUR ---
ASSUMED CARE AT 0730 PATIENT ALERT/ORIENTED, PAIN MEDS GIVEN THIS SHIFT FOR BILATERAL FEET PAIN, LEFT MORE SO THAN RIGHT. UP WITH ASSIST OF ONE AND WALKER/GAIT BELT AND WALKING SHOES. PARTICIPATED IN ALL THERAPIES TODAY, TO DINING ROOM FOR MEALS. BED/CHAIR ALARMS IN PLACE. CALL LIGHT IN REACH.
[2017-05-26 20:06] VITALS: BP 152/44
--- NOTE | 2017-05-27 00:39 | NUR ---
BEGAN CARE OF PT AT 1915, PT A/OX4, 2L NC, UP WITH ONE TO BSC USING GAIT BELT AND WALKER, VSS, PAIN TREATED-SEE EMAR, Q2T IN PLACE, DRESSING TO BILAT FEET C/D/I, HOURLY ROUNDING/FALL PRECAUTIONS IN PLACE, PT AGREEDED TO WEAR BOOTS WHILE IN BED, WILL CONT TO MONITOR.
[2017-05-27 03:44] LABS: HEMATOCRIT 29.1 % (37.0-47.0); HEMOGLOBIN 9.3 gm/dL (12.0-15.0); MCH 29.3 pg (26.0-34.0); MCHC 32.1 g/dL (28.0-37.0); MCV 91.3 fL (80.0-100.0); RBC 3.19 mil/uL (4.20-5.00); RDW-CV 14.9 % (10.5-14.5); WBC 4.6 thou/uL (4.0-11.0)
[2017-05-27 04:00] LABS: CALCIUM 8.7 mg/dL (8.5-10.1); MAGNESIUM 2.1 mg/dL (1.8-2.4); POTASSIUM 3.4 mmol/L (3.5-5.1)
--- NOTE | 2017-05-27 05:27 | NUR ---
NO ACUTE CHANGES WITH PT SINCE LAST NOTE, PAIN TREATED AT 0400, PT SLEEPING IN BED WITH IT IN LOW LOCKED POSITION AND ALARM SET, CALL LIGHT AT HER SIDE.
[2017-05-27 07:51] VITALS: BP 148/46
--- NOTE | 2017-05-27 17:54 | NUR ---
ASSUMED CARE AT 0730 PATIENT ALERT/ORIENTED, PAIN MEDS GIVEN X2 THIS SHIFT WITH FAIR RELIEF. DRESSING TO BILATERAL FEET COMPLETED ORDERED. PATIENT TOLERATED WITH LITTLE DISCOMFORT. 02 AT 2L PER NC. UP WITH ASSIST OF ONE AND WALKER/GAIT BELT. BED/CHAIR ALARMS IN PLACE, CALL LIGHT IN REACH, HOURLY ROUNDING COMPLETED. DAUGHTER CONCERNED ABOUT PATIENT DROWSY/ALERTNESS THIS AM. PATIENT DID TAKE HER REGULAR MIRTAZIPINE AT HS ALONG WITH AN AMBIEN. WILL HOLD THE AMBIEN AND SEE HOW SHE DOES TOMORROW MORNING.
[2017-05-27 20:13] VITALS: BP 155/65
[2017-05-27 23:05] LABS: CALCIUM 8.9 mg/dL (8.5-10.1); CREATININE 1.3 mg/dL (0.6-1.3); MAGNESIUM 2.2 mg/dL (1.8-2.4)
[2017-05-28 05:30] LABS: HEMATOCRIT 30.6 % (37.0-47.0); HEMOGLOBIN 9.7 gm/dL (12.0-15.0); MCH 28.9 pg (26.0-34.0); MCHC 31.8 g/dL (28.0-37.0); MCV 91.1 fL (80.0-100.0); MPV 10.5 fl. (7.2-11.1); RBC 3.35 mil/uL (4.20-5.00); RDW-CV 14.8 % (10.5-14.5); WBC 4.9 thou/uL (4.0-11.0)
[2017-05-28 05:32] LABS: CALCIUM 8.8 mg/dL (8.5-10.1); CREATININE 1.2 mg/dL (0.6-1.3); POTASSIUM 3.5 mmol/L (3.5-5.1)
[2017-05-28 05:41] LABS: CALCIUM 8.8 mg/dL (8.5-10.1); CREATININE 1.2 mg/dL (0.6-1.3); POTASSIUM 3.7 mmol/L (3.5-5.1)
--- NOTE | 2017-05-28 06:04 | NUR ---
ASSUMED PT CARE AT 1930. PT ALERT AND ORIENTED X4, POLITE AND COOPERATIVE WITH CARES. ON 2L 02 PER SD. UP WITH ONE TO BSC WITH GAIT BELT AND WALKER. PRN PAIN MEDICATIONS GIVEN PER PT REQUEST. DRESSING TO BILATERAL FEET C/D/I. CALL LIGHT AND FREQUENTLY USED ITEMS WITHIN REACH. BED ALARM ON FOR SAFETY. HOURLY ROUNDING IN PROGRESS, WILL CONTINUE TO MONITOR.
--- NOTE | 2017-05-28 07:15 | NUR ---
ASSUMED CARE OF PT ASSESSED AND DOCUMENTED. PT IS A&O. SHE IS AFEBRILE. PT IS ON WM.
[2017-05-28 07:30] VITALS: BP 171/40
--- NOTE | 2017-05-28 17:01 | NUR ---
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 PATIENT ALERT AND ORIENTED. PATIENT RESIDES AT HOME WITH HER SON-IN-LAW. PATIENT'S HOME HAS 0 STEPS. 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 PATIENT OWNS A WALKER AND USED IT PRIOR TO ADMISSION. PATIENT HAS NO HX OF OR SNF, AND PLANS TO RETURN HOME AT D/C. PATIENT ORIENTED TO THE ROLE OF CM, REHAB PROCESS, RESIDENT'S RIGHTS INFO, AND TEAM CONFRENCE MEETING. CM WILL REMAIN AVAILABLE TO ASSIST AND FOLLOW NEEDED.
--- NOTE | 2017-05-28 17:07 | NUR ---
CM SPOKE TO THE PATIENT AND HER DTR BEN ([phone]) TO DISCUSS ANY QUESTIONS OR CONCERNS FOR TOMORROW'S TEAM CONFRENCE MEETING. PATIENT HAS NO QUESTIONS OR CONCERNS AT THIS TIME. PATIENT'S DTR INFORMS THAT SHE IS CONCERNED WITH THE PATIENT'S MEDICATIOND AND LOW BP/HR. CM WILL REMAIN AVIALABLE TO ASSIST AND FOLLOW NEEDED.
--- NOTE | 2017-05-28 17:49 | NUR ---
PT HAS RESTED IN HER ROOM THIS SHIFT. SHE HAD C/O PAIN X2 IN BL TOES. MEDICATION GIVEN AND WAS EFFECTIVE. PT UP WITH PHY THERAPY TODAY. SHE IS TRYING TO USE HEELS WHEN AMBULATING. PT IS UP WITH WALKER. EDUCATION GIVEN ON DEMAND. HOURLY ROUNDING COMPLETE.
[2017-05-28 20:14] VITALS: BP 159/43
[2017-05-29 05:06] LABS: CREATININE 1.1 mg/dL (0.6-1.3); HEMATOCRIT 29.4 % (37.0-47.0); HEMOGLOBIN 9.6 gm/dL (12.0-15.0); MCH 29.2 pg (26.0-34.0); MCHC 32.5 g/dL (28.0-37.0); MCV 89.9 fL (80.0-100.0); MPV 10.4 fl. (7.2-11.1); POTASSIUM 3.5 mmol/L (3.5-5.1); RBC 3.27 mil/uL (4.20-5.00); RDW-CV 14.7 % (10.5-14.5); WBC 4.7 thou/uL (4.0-11.0)
[2017-05-29 05:27] LABS: CALCIUM 8.7 mg/dL (8.5-10.1); CREATININE 1.1 mg/dL (0.6-1.3); POTASSIUM 3.6 mmol/L (3.5-5.1)
--- NOTE | 2017-05-29 05:32 | NUR ---
ASSUMED PT CARE AT 1930. PT ALERT AND ORIENTED X4, POLITE AND COOPERATIVE WITH CARES. VISITING WITH FAMILY AT SHIFT CHANGE. PT ON 2L 02 PER NC. UP WITH ONE TO BATHROOM TO VOID WITH GAIT BELT AND WALKER. PRN PAIN MEDICATIONS GIVEN PER PT REQUEST. PT PAIN MEDICATION CHANGED, NEW PAIN MEDICATION NOT EFFECTIVE. PRN BENEDRYL X1 FOR SLEEP. DRESSINGS TO FEET C/D/I. CALL LIGHT AND FREQUENTLY USED ITEMS WITHIN REACH. BED ALARM ON FOR SAFETY. HOURLY ROUNDING IN PROGRESS, WILL CONTINUE TO MONITOR.
[2017-05-29 07:30] VITALS: BP 158/42
--- NOTE | 2017-05-29 17:14 | NUR ---
PT PARTICIPATES IN ALL THERAPIES. PAIN WELL CONTROLLED WITH PO MEDS ALTHOUGH PT ASKING FOR "SOMETHING STRONGER". PT ON O2@2L NC. 90% ON RA. PT HAS GOOD APPETITE.
[2017-05-29 19:30] VITALS: BP 97/46
--- NOTE | 2017-05-29 19:55 | NUR ---
SITTING UP IN RECLINER WITH LEGS ELEVATED. ZELDA WRAP TO FEET DRY/INTACT. FEMALE VISITOR PRESENT. PAIN MED GIVEN FOR C/O PAIN IN TOES. 02 NC AT TWO LITERS.
[2017-05-30 05:03] LABS: HEMATOCRIT 29.1 % (37.0-47.0); HEMOGLOBIN 9.4 gm/dL (12.0-15.0); MCHC 32.4 g/dL (28.0-37.0); MCV 89.5 fL (80.0-100.0); MPV 10.6 fl. (7.2-11.1); RBC 3.25 mil/uL (4.20-5.00); RDW-CV 14.9 % (10.5-14.5); WBC 4.3 thou/uL (4.0-11.0)
[2017-05-30 05:29] LABS: CALCIUM 8.9 mg/dL (8.5-10.1); CREATININE 1.1 mg/dL (0.6-1.3); POTASSIUM 3.8 mmol/L (3.5-5.1)
--- NOTE | 2017-05-30 05:35 | NUR ---
UP X ONE DURING THE NIGHT TO BSC. PAIN MED GIVEN FOR PAIN IN TOES WITH RELIEF. HOURLY ROUNDING IN PROGRESS.
[2017-05-30 07:00] VITALS: BP 156/36
--- NOTE | 2017-05-30 16:33 | NUR ---
ASSUMED CARE AT 0730 PATIENT ALERT/ORIENTED, UP WITH ASSIST OF ONE GAIT BELT AND WALKER, PATIENT HAS DIABETIC OPEN SHOES THAT WERE DELIVERED YESTERDAY FROM [facility]. PATIENT STATES SHE LIKES THEM AND THEY HELP HER WITH HER WALKING, PAIN MEDS GIVEN THIS SHIFT WITH FAIR RELIEF, PARTICIPATED IN ALL THERAPIES TODAY, TO DINING ROOM FOR MEALS. HOURLY ROUNDING COMPLETED, BED/CHAIR ALARMS IN PLACE, CALL LIGHT IN REACH. DRESSING TO BILATERAL FEET CHANGED BY VASCULAR PA TODAY.
[2017-05-30 20:20] VITALS: BP 150/39
[2017-05-30 20:24] VITALS: BP 154/65
[2017-05-31 05:23] LABS: HEMATOCRIT 27.7 % (37.0-47.0); MCH 29.1 pg (26.0-34.0); MCHC 32.6 g/dL (28.0-37.0); MCV 89.2 fL (80.0-100.0); MPV 10.2 fl. (7.2-11.1); RBC 3.1 mil/uL (4.20-5.00); RDW-CV 14.9 % (10.5-14.5); WBC 4.2 thou/uL (4.0-11.0)
--- NOTE | 2017-05-31 06:01 | NUR ---
pt alert and oriented this shift, pt does complain of left foot pain, pain controled with po pain meds, pt up with assist x2 to bedside commode and assisted to bed at 2200, pt reports resting well throughout the night with no s/s acute distress
[2017-05-31 06:09] LABS: CALCIUM 8.9 mg/dL (8.5-10.1); CREATININE 1.1 mg/dL (0.6-1.3); POTASSIUM 3.7 mmol/L (3.5-5.1)
[2017-05-31 08:13] VITALS: BP 174/46
--- NOTE | 2017-05-31 19:26 | NUR ---
PT HAS BEEN UP TO RECLINER WITH FEET ELEVATED MOST OF DAY. PT CALLS FOR ASSIST WITH TRANSFERRS TO COMMODE TO VOID AND HAS HAD BM TODAY. PRN FOR PAIN GIVEN WITH GOOD EFFECT. DRESSINGS HAVE REMAINED DRY AND INTACT TO BILAT FEED AND PT WEARS SPECIALITY SHOES WHEN UP. PT ALERT AND ORIENTATED AND PROGRESSES TOWARDS GOALS.HOURLY ROUNDING CONTINUES.
[2017-05-31 20:23] VITALS: BP 156/52
--- NOTE | 2017-05-31 21:05 | NUR ---
SITTING UP IN RECLINER WITH LEGS ELEVATED. ZELDA WRAP TO FEET DRY/INTACT. TWO VISITORS JUST LEFT. PAIN MED GIVEN FOR C/O PAIN IN FEET. PT UP TO BSC EARLIER AND HAD A BM. REQUIRED ASSIST WITH HYGIENE AND PULLING PANTS UP AND DOWN.
[2017-06-01 04:26] LABS: HEMATOCRIT 29.7 % (37.0-47.0); HEMOGLOBIN 9.6 gm/dL (12.0-15.0); MCH 29.1 pg (26.0-34.0); MCHC 32.2 g/dL (28.0-37.0); MCV 90.1 fL (80.0-100.0); MPV 10.1 fl. (7.2-11.1); RBC 3.3 mil/uL (4.20-5.00); RDW-CV 14.9 % (10.5-14.5); WBC 3.7 thou/uL (4.0-11.0)
[2017-06-01 05:07] LABS: CALCIUM 8.9 mg/dL (8.5-10.1); CREATININE 1.1 mg/dL (0.6-1.3); POTASSIUM 3.6 mmol/L (3.5-5.1)
--- NOTE | 2017-06-01 05:20 | NUR ---
PT WENT TO BED ABOUT 2230. PAIN MED LAST GIVEN AT 0230 WITH RELIEF. HOURLY ROUNDING IN PROGRESS.
[2017-06-01 08:36] VITALS: BP 152/40
--- NOTE | 2017-06-01 20:04 | NUR ---
BILAT FEET DRESSINGS CHANGED PER PROGRESS NOTE OF 05/30 MARIBETH ARAGON WITH INCISIONS CLEANSED WITH WOUND CLEANSER,XEROFORM GAUZE,KERLIX AND ZELDA WRAP TO BILAT FEET. INCISIONS CLEAN AND DRY WITH JERICHO AND SUTURES PRESENT. PRN FOR PAIN GIVEN DURING DAY WITH GOOD EFFECT. PT IS ALERT AND ORIENTATED. PT AMBULATES WITH STEADY GAIT, WALKER, GAITBELT AND SPECIALTY SHOES TO BATHROOM WITH MIN ASSIST AND VOIDS WELL. PT VISITS WITH DAUGHTER NOW.
[2017-06-01 20:35] VITALS: BP 185/39
--- NOTE | 2017-06-01 22:05 | NUR ---
SITTING UP IN RECLINER WITH LEGS ELEVATED. ZELDA WRAP TO FEET DRY/INTACT. PAIN MED GIVEN FOR C/O PAIN IN FEET. SNACK PROVIDED. TOOK MEDS WHOLE WITH WATER. 02 NC AT ONE LITER.
--- NOTE | 2017-06-02 06:11 | NUR ---
GAVE PAIN MED FOR C/O LEFT FOOT PAIN AT 0225 WITH RELIEF. RESTING QUIETLY. HOURLY ROUNDING IN PROGRESS.
[2017-06-02 07:52] VITALS: BP 154/41
--- NOTE | 2017-06-02 14:44 | NUR ---
ASSUMED CARE AT 0730. ALERT ORIENTED PLEASANT COOPERATIVE. HX OF TOE AMPUTATIONS. DRESSINGS C/D/I TO BILATERAL FEET WEARS OFF LOADING FOREFRONT SHOES WHEN UP AMBULATING AND WHEN WITH THERAPIES. TRANSFERS WITH SBA G BELT AND WALKER. PARTICIPATING IN THERAPIES THROUGHOUT THE DAY. MEDICATED WITH PRN PAIN MED X 1 PER PT. REQUEST. USES CALL LIGHT APPROPRIATELY FOR ASSIST BED CHAIR ALARM FOR PT. SAFETY. ON 1 L/M O2 PER N/C CONTINOUSLY. TO DR FOR LUNCH MEAL PER W/C. FEEDS SELF TAKES MEDS WITHOUT DIFFICULTY. BLES ELEVATED IN RECLINER WHEN NOT IN THERAPIES.
[2017-06-02 17:13] VITALS: BP 153/48
[2017-06-02 20:32] VITALS: BP 130/33
--- NOTE | 2017-06-02 21:40 | NUR ---
SITTING UP IN RECLINER WITH LEGS ELEVATED CROCHETING. PAIN MED GIVEN FOR C/O LEFT FOOT PAIN RATED "7". ZELDA DRESSINGS TO FEET DRY/INTACT. TOOK MEDS WHOLE ALL AT ONCE WITH WATER.
--- NOTE | 2017-06-03 05:29 | NUR ---
WOKE UP DURING THE NIGHT WITH C/O ITCHING. BENADRYL GIVEN WITH GOOD RESULTS. HOURLY ROUNDING IN PROGRESS.
[2017-06-03 07:30] VITALS: BP 145/38; BP 172/45
--- NOTE | 2017-06-03 16:19 | NUR ---
ASSUMED CARE AT 0730. ALERT ORIENTED PLEASANT COOPERATIVE. 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 DRESSINGS C/D/I CHANGED THIS AFTERNOON AND PHOTOGRAPHS TAKEN. TRANSFERS WITH SBA G BELT WALKER AND SPECIALTY SHOES. O2 ON AT 1L/M PER N/C. USES CALL LIGHT APPROPRIATELY FOR ASSIST BED CHAIR ALARM ON FOR PT. SAFETY. TO DR FOR MEALS PER W/C. UP IN RECLINER FOR MOST OF DAY WITH BLES ELEVATED. DAUGHTER HERE VISITING THIS A.M. CONCERN RE MOMS DIASTOLIC LOWER DIASTOLIC PRESSURES AND CURIOUS IF SHE NEEDS TO WEAR TUBIGRIPS NOW SHE WAS WEARING THEM BEFORE SURGERY. MEDICATED WITH PRN PAIN MED X 1 APPETITE GOOD FEEDS SELF TAKES MEDS WITHOUT DIFFICULTY.
[2017-06-03 17:00] VITALS: BP 182/43
[2017-06-03 17:30] VITALS: BP 147/43
[2017-06-03 19:49] VITALS: BP 112/52; BP 133/46
--- NOTE | 2017-06-04 05:22 | NUR ---
ASSUMED PT CARE AT 1930. PT ALERT AND ORIENTED X4, POLITE AND COOPERATIVE WITH CARES. PT SITTING UP IN RECLINER WITH LEGS ELEVATED. HX OF VARIOUS BIALTERAL TOE AMPUTATIONS. DRESSINGS TO FEET C/D/I. UP WITH SBA, GATI BELT, WALKER AND SPECIALTY SHOES. 02 AT L1 PER NC. PRN PAIN MEDICATION X2 AND PRN BENEDRYL X1 THIS SHIFT. BED ALARM ON FOR SAFETY. CALL LIGHT AND FREQUENTLY USED ITEMS WITHIN REACH. HOURLY ROUNDING IN PROGRESS, WILL CONTINUE TO MONITOR.
[2017-06-04 07:58] VITALS: BP 124/46
--- NOTE | 2017-06-04 17:22 | NUR ---
ASSUMED CARE AT 0730. ALERT ORIENTED PLEASANT COOPERATIVE. HX OF TMA L FOOT AND TOES 4-5 AMPUTATIONS. DRESSINGS CHANGED THIS A.M. BY MARIBETH Weller TO FEET WEARS SPECIALTY SHOES WITH AMBULATION. TRANSFERS WITH SBA G BELT WALKER O2 AT 1L/M PER N/C CONTINOUSLY. PARTICIPATING WITH THERAPIES THROUGHOUT THE DAY. FEEDS SELF TAKES MEDS WITHOUT DIFFICULTY. MEDICATED WITH PRN PAIN MED FOR FOOT PAIN X 2. SITTING IN RECLINER WITH BLES ELEVATED WHEN NOT IN THERAPIES. USES CALL LIGHT APPROPRIATELY FOR ASSIST BED CHAIR ALARM FOR PT. SAFETY.
[2017-06-04 19:49] VITALS: BP 172/38
--- NOTE | 2017-06-04 23:18 | NUR ---
ASSUMED CARE AT 1930. PATIENT S/P BILAT FOOT SURGERIES. RESTING IN RECLINER UNTIL AROUND 2200 WITH LEGS ELEVATED. UP WITH SBA, GAIT BELT, WALKER. VOIDS PER TOILET. DOES OWN HYGIENE AND CLOTHING ADJUSTMENTS. TAKES PILLS WHOLE WITH WATER. DRESSINGS C/D/I. WEARING SURGICAL BOOTS UNTIL HS. O2 2L/NC. HOURLY ROUNDS CONTINUE. BED ALARM ON. CALL LITE IN REACH.
--- NOTE | 2017-06-05 06:05 | NUR ---
SLEPT MOST OF THE NIGHT. TURNS SELF. REFUSES ASSIST. MEDICATED FOR ITCHING ONCE, PAIN MED AT HS WITH GOOD RELIEF. DSSGS C/D/I. HOURLY ROUNDS CONTINUE. BED ALARM ON. CALL LITE IN REACH.
[2017-06-05 08:00] VITALS: BP 177/56
--- NOTE | 2017-06-05 16:30 | NUR ---
ASSUMMED CARE OF PT AT 0730, PT LAERT AND ORIENTED, PT TRANSFERS WITH SBA GB AND WALKER, VOIDS PER TOILET, SMALL BM THIS SHIFT, PT WEARS O2 AT 1L, PT COMPLAINED OF PAIN IN BILATERAL FEET, MEDICATED PER ORDER, DRESSING TO FEET C/D/I, TUBIGRIP TO BILATERAL LEGS, PT COMPLAINED OF SLIGHT NAUSEA THIS AM, DENIED NEED FOR MEDICATION, TAKING FOOD AND FLUIDS WELL, PARTICIPATED IN ALL THERAPIES, HAD LUNCH IN DININGROOM, HOURLY ROUNDING COMPLETED, ASSESSMENT COMPLETE, WILL CONTINUE TO MONITOR.
[2017-06-05 20:07] VITALS: BP 183/46
[2017-06-06 04:49] LABS: ABSOLUTE EOSINOPHILS 0.1 thou/uL (0.0-0.7); ABSOLUTE LYMPHOCYTES 0.8 thou/uL (0.8-5.3); ABSOLUTE MONOCYTES 0.5 thou/uL (0.0-1.2); ABSOLUTE NEUTROPHILS 2.5 thou/uL (1.6-8.1); BASOPHILS 0.9 %; EOSINOPHILS 2.9 %; HEMATOCRIT 28.1 % (37.0-47.0); HEMOGLOBIN 9.2 gm/dL (12.0-15.0); LYMPHOCYTES 20.6 %; MCH 28.8 pg (26.0-34.0); MCHC 32.6 g/dL (28.0-37.0); MCV 88.3 fL (80.0-100.0); MONOCYTES 11.7 %; MPV 10.1 fl. (7.2-11.1); NUCLEATED RBCS 0 /100WBC; PLATELET COUNT* 87 thou/uL (150-400); POLYS 63.9 %; RBC 3.18 mil/uL (4.20-5.00); RDW-CV 15.1 % (10.5-14.5)
[2017-06-06 05:03] LABS: ALBUMIN 2.9 g/dL (3.4-5.0); CALCIUM 8.7 mg/dL (8.5-10.1); CREATININE 1.2 mg/dL (0.6-1.3); POTASSIUM 3.6 mmol/L (3.5-5.1); TOTAL BILIRUBIN 0.3 mg/dL (<0.1-1.0); TOTAL PROTEIN 6.3 g/dL (6.4-8.2)
--- NOTE | 2017-06-06 05:23 | NUR ---
ASSUMED PATIENT CARE AT 1900. PATIENT UP IN RECLINER AT BEDSIDE, VISITING WITH DAUGHTER. NO COMPLAINTS OF PAIN OR DISCOMFORT NOTED. ABLE TO MANAGE CLOTHING AND TOILETING NEEDS INDEPENDENTLY. MINOR COMPLAINTS OF PAIN, MANAGED WITH ORAL MEDICATION. PATIENT ABLE TO AMBULATE WITH GAIT BELT AND WALKER. MANAGES DIETARY NEEDS WITH SET-UP HELP ONLY. FALL RISK PRECAUTIONS REMAIN IN PLACE. HOURLY ROUNDING AND MARINE WELDER COMPLETED DOCUMENTED.
[2017-06-06 07:52] VITALS: BP 194/48
--- NOTE | 2017-06-06 14:05 | NUR ---
SW met with pt and pt dtr Umu to review team conference summary and discuss safe dc planning; team's recommendation to offer family training, SW scheduled with pt dtr for at 9 am then team discussed pt being ready to dc on Sunday to home with family assist and HH services. SW mentioned the possible need for home oxygen to be arranged and that testing would be on Sunday and SW could arrange for the order and delivery of oxygen prior to pt dc home. Pt dtr plans to take off of work tomorrow afternoon to assist with getting things ready for pt to dc and mentioned that pt son in law is also finishing projects around the house to help with pt transition home. Pt and pt dtr in agreement with plan and SW to continue to follow to assist with safe dc planning.
--- NOTE | 2017-06-06 17:25 | NUR ---
SW met with pt and pt dtr to review team conference summary and discuss safe dc planning. SW reviewed therapy reports on pt progress and functioning regarding therapy tasks in mobility and ADLs and discussed team's recommendation for pt to dc home with family assistance on Sunday after some family training which was scheduled for at 9 am. HH services to be arranged prior to dc as well as possible need for oxygen. Pt and pt dtr in agreement with plans. SW to continue to follow to assist with safe dc planning.
--- NOTE | 2017-06-06 17:45 | NUR ---
ASSUMED CARE AT 0730 PATIENT ALERT/ORIENTED, PAIN MEDS GIVEN FOR BILATERAL FEET PAIN, UP WITH STANDBY ASSIST WITH WALKER/GAIT BELT, DRESSING TO FEET CHANGED THIS SHIFT. PARTICIPATED IN ALL THERAPIES TODAY, TO DINING ROOM FOR MEALS. BED/CHAIR ALARMS IN PLACE, CALL LIGHT IN REACH. HOME ON SUNDAY.
[2017-06-06 19:46] VITALS: BP 197/72
--- NOTE | 2017-06-07 05:16 | NUR ---
ASSUMED PT CARE AT 1930. PT ALERT AND ORIENTED X4, POLITE AND COOPERATIVE WITH CARES. PT SITTING UP IN CHAIR AT SHIFT CHANGE, TO BED AT 2200. TAKES PILLS WHOLE WITHOUT DIFFICULTY. PRN PAIN MEDICATION AND BENEDRYL GIVEN PER PT REQUEST AT HS. DRESSING TO FEET C/D/I. UP TO VOID WITH SBA, GAIT BELT AND WALKER. PT ANTICIPATING DISCHARGE ON SUNDAY. USES CALL LIGHT APPROPRIATELY. CALL LIGHT AND FREQUENTLY USED ITEMS WITHIN REACH. HOURLY ROUNDING IN PROGRESS, WILL CONTINUE TO MONITOR.
[2017-06-07 07:46] VITALS: BP 174/49
--- NOTE | 2017-06-07 14:13 | NUR ---
SW called and spoke with pt dtr about dc plans and as pt and pt dtr had planned for pt to dc home on Sunday and SW called to confirm whether dc would be best to be Sunday or Sunday. Pt dtr did not have a preference and said that she took off work on Sunday to prepare for pt to return home. Pt dtr aware oxygen to be arranged after testing tomorrow morning and for HH services to follow, pt preference for [facility], SW to arrange. No other needs or questions at this time; SW to continue to follow to assist with finalizing safe dc planning.
[2017-06-07 16:23] VITALS: BP 174/49
--- NOTE | 2017-06-07 17:06 | NUR ---
ASSUMED CARE AT 0730 PATIENT ALERT/ORIENTED, PAIN MEDS GIVEN REQUESTED, GOOD PAIN CONTROL TODAY, PARTICIPATED IN ALL THERAPIES TODAY, TO DINING ROOM FOR MEALS, BED/CHAIR ALARMS IN PLACE, CALL LIGHT IN REACH, HOURLY ROUNDING COMPLETED. MARIBETH ARAGON WITH DR ESCUDERO OFFICE CHAGED DRESSINGS TO BILATERAL FEET. PATIENT WILL BE D/C HOME TOMORROW WITH FOLLOW UP IN OFFICE ON JUNE 19.
[2017-06-07 20:27] VITALS: BP 183/47
[2017-06-08 04:41] LABS: ABSOLUTE EOSINOPHILS 0.2 thou/uL (0.0-0.7); ABSOLUTE LYMPHOCYTES 0.8 thou/uL (0.8-5.3); ABSOLUTE MONOCYTES 0.5 thou/uL (0.0-1.2); ABSOLUTE NEUTROPHILS 2.7 thou/uL (1.6-8.1); BASOPHILS 0.7 %; EOSINOPHILS 3.7 %; HEMATOCRIT 28.8 % (37.0-47.0); HEMOGLOBIN 9.4 gm/dL (12.0-15.0); LYMPHOCYTES 19.2 %; MCH 28.9 pg (26.0-34.0); MCHC 32.6 g/dL (28.0-37.0); MCV 88.9 fL (80.0-100.0); MPV 9.8 fl. (7.2-11.1); NUCLEATED RBCS 0 /100WBC; PLATELET COUNT* 95 thou/uL (150-400); POLYS 64.4 %; RBC 3.24 mil/uL (4.20-5.00); RDW-CV 15.1 % (10.5-14.5); WBC 4.2 thou/uL (4.0-11.0)
[2017-06-08 05:03] LABS: CALCIUM 8.9 mg/dL (8.5-10.1); CREATININE 1.3 mg/dL (0.6-1.3); POTASSIUM 3.5 mmol/L (3.5-5.1); TOTAL BILIRUBIN 0.4 mg/dL (<0.1-1.0); TOTAL PROTEIN 6.3 g/dL (6.4-8.2)
--- NOTE | 2017-06-08 05:24 | NUR ---
ASSUMED PT CARE AT 1930. PT ALERT AND ORIENTED X4, POLITE AND COOPERATIVE WITH CARES. PT SITTING UP IN CHAIR AT SHIFT CHANGE, TO BED AT 2200. TAKES PILLS WHOLE WITHOUT DIFFICULTY. PRN PAIN MEDICATION AND BENEDRYL GIVEN TWICE THIS SHIFT PER PT REQUEST. DRESSING TO FEET C/D/I. UP TO VOID WITH SBA, GAIT BELT AND WALKER. ON 1L 02 PER NC OVERNIGHT. PT TO BE DISCHARGED HOME TODAY. USES CALL LIGHT APPROPRIATELY. CALL LIGHT AND FREQUENTLY USED ITEMS WITHIN REACH. HOURLY ROUNDING IN PROGRESS, WILL CONTINUE TO MONITOR.
[2017-06-08 07:30] VITALS: BP 149/36
[2017-06-08 09:31] VITALS: BP 174/49
[2017-06-08] MEDS ORDERED: ACETAMINOPHEN-1 EAC1 PO (12:31)
--- NOTE | 2017-06-08 14:57 | NUR ---
SUE spoke with pt and pt dtr about dc home with dtr today. SUE confirmed [facility] accepted referral and will begin services with pt upon dc home. SUE sent referral and orders to [facility] at fax [phone] and spoke with Mariama at [phone] who confirmed that [facility] will bring an oxygen tank to the hospital for pt dc home. Pt has Medicare Part A only and [employer] to which pt and pt dtr said [employer] would be primary for O2 so SUE asked [facility] to run [employer] insurance for coverage, otherwise, pt would be responsible for $22/tank and 170 dollars for the first month and then pt would be able to apply for financial hardship and possibly receive a discount. SUE explained this to pt and pt dtr.
[2017-06-08 15:06] VITALS: BP 174/49
[2017-06-08 16:11] VITALS: BP 174/49
--- NOTE | 2017-06-08 16:29 | NUR ---
ASSUMED CARE AT 0730. ALERT ORIENTED PLEASANT COOPERATIVE. HX OF RT. TOE AMPUTATIONS AND L TMA. DRESSINGS C/D/I. WEARS SPECIALTY SHOES WITH AMBULATION. TRANSFERS WITH SBA G BELT WALKER AND O2 ON AT 1L/M PER N/C CONTINOUSLY. O2 SATS DROP WITH TRANSFERS FROM RECLINER AMBULATED TO BED WITH O2 OFF PER R.T. DOES NEED O2 FOR D/C TO HOME. PARTICIPATING WITH THERAPIES THROUGHPIT THE MORNING. DRESSINGS CHANGED TO BILATERAL FEET AND TUBIGRIPS APPLIED. MEDICATED X 1 FOR FOOT PAIN THIS A.M. PER PT. REQUEST. SITTING IN RECLINER WITH BILATERAL EXTREMETIES ELEVATED WHEN NOT IN THERAPIES. USES CALL LIGHT APPROPRIATELY FOR ASSIST. CHAIR ALARM FOR PT. SAFETY.
[2017-06-08] MEDS ORDERED: LISINOPRIL10 MG PO (17:10)
[2017-06-08 18:45] VITALS: BP 174/49
--- NOTE | 2017-06-08 18:45 | NUR ---
DISMISSED PER W/C WITH BELONGINGS DISCHARGE INSTRUCTIONS SCRIPTS FILLED AT [facility] PER DAUGHTER. VERBALIZED UNDERSTANDING OF D/C INSTRUCTIONS ALLOWED TIME FOR QUESTIONS. ALL BELONGINGS AND O2 PER [facility] HOME WITH PT. DISMISSED AT 1845 AFTER SUPPER.
--- NOTE | 2017-06-18 15:02 | H ---
[address] [address] HISTORY AND PHYSICAL Name: TAMARA MOREAU Room: [address] IN [facility].#: [id number] Admission: 05/25/17 Attend Phys: Enedelia Casiano DO Discharge: 06/08/17 Date of : 40 Report #: [id number] THIS REPORT FOR: //name// CC: Elizabeth Casiano DATE OF SERVICE: 05/25/2017 HISTORY OF PRESENT ILLNESS: This is a 76-year-old female who was admitted on 05/16/2017 acutely. Her previous level of function was modified independent to independent with her activities and moving. Her current level of function is modified independent to independent with all activities of daily living with mild impairment of comprehension, expression, social interaction, problem solving and memory. She has multiple medical comorbidities that require acute medical care. She has a history of peripheral vascular disease, gangrene and bilateral amputations. PAST MEDICAL HISTORY: Hypertension, rheumatoid arthritis, gastroesophageal reflux disease, arthritis, diabetes uncontrolled with a random glucose of 118, asthma, hyperlipidemia, acute renal failure, acute hypoxic respiratory failure, systolic congestive heart failure, bronchitis, coronary artery disease, history of heart murmur, mitral and aortic valve insufficiency, bilateral lower extremity ulcers, tonsillectomy, left foot toe amputation, cardiac catheterization and left lower extremity stenting. ALLERGIES: DYE, SULFA, TRAMADOL AND HYDROCODONE. SOCIAL HISTORY: No tobacco, alcohol or illicit drug use. She does have a remote history of 1 pack per day smoking. REVIEW OF SYSTEMS: A 14-point review of systems is done today and is negative except as mentioned in the HPI, specifically no chest pain, shortness of breath, abdominal pain, change in bowel or change in bladder, swelling in the bilateral lower extremities. ASSESSMENT: 1. Debility with peripheral vascular disease, gangrene, bilateral amputations. 2. Multiple medical comorbidities. PLAN: 1. Admission to inpatient rehabilitation to facilitate [place] [address] HISTORY AND PHYSICAL Name: TAMARA MOREAU Chace Room: [address] IN [facility].#: [id number] Admission: 05/25/17 Attend Phys: Enedelia Casiano DO Discharge: 06/08/17 Date of : 40 Report #: [id number] 2. PT, OT, speech, language pathology to make evaluations and recommendations. 3. We will team her weekly and make changes to plan of care as needed. <ELECTRONICALLY SIGNED> By: Enedelia Casiano DO 06/18/17 1502 34 50Enedelia Casiano DO /nt
--- NOTE | 2017-06-18 15:02 | PLAN ---
[address] [address] REHAB UNIT PLAN OF CARE Name: TAMARA MOREAU Chace Room: [address] IN [facility].#: [id number] Admission: 05/25/17 Attend Phys: Enedelia Casiano, Discharge: 06/08/17 Date of : 40 Report #: [id number] THIS REPORT FOR: //name// CC: Elizabeth Casiano This 76-year-old female admitted to inpatient rehabilitation to facilitate safe discharge home, status post bilateral amputations, left TMA and a right fourth and fifth toes. Previous level of function was independent with activities of daily living. Current level of function is minimum to moderate assistance of 1-2 depending on therapy, activity and time of day. Estimated length of stay is 12-14 days with discharge disposition to the home setting where she has supportive family and lives in a house. She does have supportive family. MEDICAL PROGNOSIS: Good. REHABILITATION PROGNOSIS: Good. ESTIMATED LENGTH OF STAY: 14-16 days. She does have needs in physical and occupational therapy as well as speech and language pathology where she has mild impairment of comprehension, expression, problem solving and memory. Physical therapy will see the patient 60-90 minutes per day, 5 days per week, working on upper and lower body strength, balance, coordination, navigation. Occupational therapy will work with the patient 60-90 minutes per day, 5 days per week, working on upper and lower body strength, balance, coordination, navigation, bathing, dressing, and toileting. Speech and language pathology will work with the patient 30-90 minutes per day working on memory, communication and expression. All of these therapies will be with bilateral heel bearing only. This is an overall plan of care, may change from time to time. We will team weekly and make changes to plan of care as needed. <ELECTRONICALLY SIGNED> By: Enedelia Casiano DO 06/18/17 1502 1224 1341Enedelia Casiano DO /nt
--- NOTE | 2017-07-10 13:29 | D ---
[facility] [address] [place] [address] DISCHARGE SUMMARY Name: TAMARA MOREAU Room: [address] IN [facility]#: [id number] Admission: 05/25/17 Attend Phys: Enedelia Casiano, Discharge: 06/08/17 Date of : 40 Report #: [id number] THIS REPORT FOR: //name// CC: Elizabeth Casiano DATE OF SERVICE: 06/08/2017 DISCHARGE DIAGNOSES: Right transmetatarsal amputation and left toe amputation x 2. DISCHARGE DISPOSITION: To home with family with home health PT, OT and nursing. The patient progressed well in her rehabilitation. She was also followed by Medicine as well as Wound Care and Vascular Surgery. She will follow up with wound clinic within 1 week, primary care physician within 1 week and her vascular surgeon in 1-2 weeks. MEDICATIONS: Reviewed and reconciled by myself and available in the MAR. Any needed prescriptions were given for one month's time. She will wear heel offloading postoperative boots until otherwise noted from Vascular Surgery. Alva will remain in for at least [address] Dow. DISCHARGE PHYSICAL EXAMINATION: GENERAL: Alert, oriented, in no apparent distress. VITAL SIGNS: Reviewed and are stable. HEENT: Head atraumatic, normocephalic. Pupils equal, round, reactive. ABDOMEN: Soft, nontender, nondistended. NEUROLOGIC: Cranial nerves 2-12 are grossly intact. No focal neuro deficits, 5/5 strength in the bilateral upper and lower extremities. SKIN: Warm and dry, wounds are freshly dressed. <ELECTRONICALLY SIGNED> By: Enedelia Casiano DO 07/10/17 1329 1449 1541Enedelia Casiano DO /nt
== END 2017-06-08 18:45 | disposition home health service (06) | DRG 299 ==
LOC: M.REH 14:18
PROVIDERS: Family Medicine; Internal Medicine; ADMIT Physical Medicine & Rehabilitation
DX: E11.52 Type 2 diabetes mellitus with diabetic peripheral angiopathy with gangrene (principal); J96.01 Acute respiratory failure with hypoxia; N17.0 Acute kidney failure with tubular necrosis; I50.21 Acute systolic (congestive) heart failure; I96 Gangrene, not elsewhere classified; E44.0 Moderate protein-calorie malnutrition; Z68.43 Body mass index [BMI] 50.0-59.9, adult; N39.0 Urinary tract infection, site not specified; M06.9 Rheumatoid arthritis, unspecified; K21.9 Gastro-esophageal reflux disease without esophagitis; M19.90 Unspecified osteoarthritis, unspecified site; E11.65 Type 2 diabetes mellitus with hyperglycemia; J45.909 Unspecified asthma, uncomplicated; E78.5 Hyperlipidemia, unspecified; I25.10 Atherosclerotic heart disease of native coronary artery without angina pectoris; I08.0 Rheumatic disorders of both mitral and aortic valves; R53.81 Other malaise; F17.210 Nicotine dependence, cigarettes, uncomplicated; I11.0 Hypertensive heart disease with heart failure; N85.2 Hypertrophy of uterus; J44.9 Chronic obstructive pulmonary disease, unspecified; E87.5 Hyperkalemia; E87.70 Fluid overload, unspecified; E87.6 Hypokalemia; Z89.432 Acquired absence of left foot; Z95.5 Presence of coronary angioplasty implant and graft; Z88.2 Allergy status to sulfonamides; Z88.8 Allergy status to other drugs, medicaments and biological substances; Z88.6 Allergy status to analgesic agent; Z91.041 Radiographic dye allergy status; Z79.899 Other long term (current) drug therapy

== ENCOUNTER → 2017-08-29 | Outpatient (CLI) | payer OTHER, MEDICARE ==
[~2017-08-29] MED LIST changes: +ACETAMINOPHEN-1 EAC1 PO; +CELEXA10 MG PO; +COLACE100 MG PO; +FENOFIBRATE145 M1 PO; +FOLGARD TABLET1 EAC1 PO; +FUROSEMIDE 40 M40 M1 PO; +LISINOPRIL10 MG PO; +LISINOPRIL5 MG PO; +PREVACID 24HR15 MG PO; +PSYLLIUM FIBE0.52 GM PO; +REMERON15 M2 PO; +RIFAMPIN 300 M300 M1 PO; +UNICOMPLEX M TA1 TA1 PO
== END ==
LOC: M.WC 09:00
DX: E11.621 Type 2 diabetes mellitus with foot ulcer (principal); I70.245 Atherosclerosis of native arteries of left leg with ulceration of other part of foot; L97.521 Non-pressure chronic ulcer of other part of left foot limited to breakdown of skin; L97.511 Non-pressure chronic ulcer of other part of right foot limited to breakdown of skin; L97.321 Non-pressure chronic ulcer of left ankle limited to breakdown of skin; E11.36 Type 2 diabetes mellitus with diabetic cataract; I11.0 Hypertensive heart disease with heart failure; I50.9 Heart failure, unspecified; M06.9 Rheumatoid arthritis, unspecified; J45.909 Unspecified asthma, uncomplicated; Z87.891 Personal history of nicotine dependence

== ENCOUNTER → 2017-09-05 | Outpatient (CLI) | payer OTHER, MEDICARE | LOC: M.WC 04:04 | DX: E11.621 Type 2 diabetes mellitus with foot ulcer (principal); I70.245 Atherosclerosis of native arteries of left leg with ulceration of other part of foot; L97.521 Non-pressure chronic ulcer of other part of left foot limited to breakdown of skin; I70.235 Atherosclerosis of native arteries of right leg with ulceration of other part of foot; L97.511 Non-pressure chronic ulcer of other part of right foot limited to breakdown of skin; E11.622 Type 2 diabetes mellitus with other skin ulcer; L97.321 Non-pressure chronic ulcer of left ankle limited to breakdown of skin; I11.0 Hypertensive heart disease with heart failure; I50.9 Heart failure, unspecified; M06.9 Rheumatoid arthritis, unspecified; J45.909 Unspecified asthma, uncomplicated; Z87.891 Personal history of nicotine dependence; Z98.42 Cataract extraction status, left eye; Z98.41 Cataract extraction status, right eye; Z89.422 Acquired absence of other left toe(s); Z89.421 Acquired absence of other right toe(s) ==

== ENCOUNTER → 2017-09-12 | Outpatient (CLI) | payer OTHER, MEDICARE | LOC: M.WC 05:07 | DX: E11.621 Type 2 diabetes mellitus with foot ulcer (principal); I70.235 Atherosclerosis of native arteries of right leg with ulceration of other part of foot; L97.521 Non-pressure chronic ulcer of other part of left foot limited to breakdown of skin; L97.511 Non-pressure chronic ulcer of other part of right foot limited to breakdown of skin; E11.622 Type 2 diabetes mellitus with other skin ulcer; I70.243 Atherosclerosis of native arteries of left leg with ulceration of ankle; L97.321 Non-pressure chronic ulcer of left ankle limited to breakdown of skin; E11.36 Type 2 diabetes mellitus with diabetic cataract; I11.0 Hypertensive heart disease with heart failure; I50.9 Heart failure, unspecified; M06.9 Rheumatoid arthritis, unspecified; J45.909 Unspecified asthma, uncomplicated; Z87.891 Personal history of nicotine dependence; Z98.42 Cataract extraction status, left eye; Z98.41 Cataract extraction status, right eye ==

== ENCOUNTER → 2017-09-26 | Outpatient (CLI) | payer OTHER, MEDICARE | LOC: M.WC 04:37 | DX: I70.235 Atherosclerosis of native arteries of right leg with ulceration of other part of foot (principal); E11.621 Type 2 diabetes mellitus with foot ulcer; L97.511 Non-pressure chronic ulcer of other part of right foot limited to breakdown of skin; L97.521 Non-pressure chronic ulcer of other part of left foot limited to breakdown of skin; I70.243 Atherosclerosis of native arteries of left leg with ulceration of ankle; E11.622 Type 2 diabetes mellitus with other skin ulcer; L97.321 Non-pressure chronic ulcer of left ankle limited to breakdown of skin; I11.0 Hypertensive heart disease with heart failure; I50.9 Heart failure, unspecified; E11.36 Type 2 diabetes mellitus with diabetic cataract; J45.909 Unspecified asthma, uncomplicated; M06.9 Rheumatoid arthritis, unspecified; Z87.891 Personal history of nicotine dependence ==

== ENCOUNTER 2017-10-12 06:34 | Observation (INO) | payer OTHER, MEDICARE ==
[~2017-10-12] VITALS: Ht 149.9 cm; Wt 71.2 kg
[~2017-10-12 06:34] MED LIST changes: -CELEXA10 MG PO; -COLACE100 MG PO; -FENOFIBRATE145 M1 PO; -FOLGARD TABLET1 EAC1 PO; -FUROSEMIDE 40 M40 M1 PO; -LISINOPRIL5 MG PO; -PREVACID 24HR15 MG PO; -PSYLLIUM FIBE0.52 GM PO; -REMERON15 M2 PO; -RIFAMPIN 300 M300 M1 PO; -UNICOMPLEX M TA1 TA1 PO
[2017-10-12] MEDS ORDERED: RIFAMPIN 300 M300 M1 PO (07:46)
[2017-10-12] MEDS ORDERED: PREVACID 24HR15 MG PO (07:47)
[2017-10-12] MEDS ORDERED: CELEXA10 MG PO ×2 (07:48→18:35)
[2017-10-12 07:50] VITALS: BP 164/45; BP 165/45
[2017-10-12 08:08] LABS: ABSOLUTE EOSINOPHILS 0.2 thou/uL (0.0-0.7); NUCLEATED RBCS 0 /100WBC; WBC 7.4 thou/uL (4.0-11.0)
[2017-10-12 08:13] LABS: ABSOLUTE LYMPHOCYTES 1.3 thou/uL (0.8-5.3); ABSOLUTE MONOCYTES 0.4 thou/uL (0.0-1.2); ABSOLUTE NEUTROPHILS 5.5 thou/uL (1.6-8.1); BASOPHILS 0.4 %; EOSINOPHILS 2.9 %; HEMATOCRIT 38.3 % (37.0-47.0); HEMOGLOBIN 12.6 gm/dL (12.0-15.0); MCH 30.7 pg (26.0-34.0); MCV 93.2 fL (80.0-100.0); MPV 8.5 fl. (7.2-11.1); PLATELET COUNT* 140 thou/uL (150-400); POLYS 73.7 %; RBC 4.11 mil/uL (4.20-5.00); RDW-CV 16.8 % (10.5-14.5)
[2017-10-12 08:17] LABS: CREATININE 1.7 mg/dL (0.6-1.3)
[2017-10-12 08:21] LABS: INR 1.1; PROTIME 10.7 Seconds (9.20-11.50)
[2017-10-12 17:30] VITALS: BP 160/53
[2017-10-12 17:38] LABS: CREATININE 1.4 mg/dL (0.6-1.3); MAGNESIUM 1.9 mg/dL (1.8-2.4); POTASSIUM 4.6 mmol/L (3.5-5.1)
[2017-10-12] MEDS ORDERED: UNICOMPLEX M TA1 TA1 PO (18:29)
[2017-10-12] MEDS ORDERED: FUROSEMIDE 40 M40 M1 PO (18:29)
[2017-10-12] MEDS ORDERED: FOLGARD TABLET1 EAC1 PO (18:30)
[2017-10-12] MEDS ORDERED: FENOFIBRATE145 M1 PO (18:31)
[2017-10-12] MEDS ORDERED: LANSOPRAZOLE15 MG PO (18:31)
[2017-10-12] MEDS ORDERED: BENADRYL25 MG PO (18:32)
[2017-10-12] MEDS ORDERED: REMERON15 M2 PO (18:33)
[2017-10-12] MEDS ORDERED: PSYLLIUM FIBE0.52 GM PO (18:34)
[2017-10-12 20:00] VITALS: BP 117/38
[2017-10-12 21:55] LABS: HEMATOCRIT 27.6 % (37.0-47.0); HEMOGLOBIN 9.4 gm/dL (12.0-15.0)
[2017-10-13] VITALS: BP 122/53
[2017-10-13 04:00] VITALS: BP 135/39
[2017-10-13 04:16] LABS: HEMATOCRIT 27.2 % (37.0-47.0); HEMOGLOBIN 9.2 gm/dL (12.0-15.0); MCH 31.4 pg (26.0-34.0); MCHC 33.7 g/dL (28.0-37.0); MCV 93.2 fL (80.0-100.0); MPV 8.3 fl. (7.2-11.1); RBC 2.92 mil/uL (4.20-5.00); RDW-CV 16.5 % (10.5-14.5); WBC 5.7 thou/uL (4.0-11.0)
[2017-10-13 04:31] LABS: CALCIUM 10.6 mg/dL (8.5-10.1); CREATININE 1.3 mg/dL (0.6-1.3); POTASSIUM 4.3 mmol/L (3.5-5.1)
[2017-10-13 08:30] VITALS: BP 160/43
[2017-10-13 11:26] LABS: HEMATOCRIT 28.5 % (37.0-47.0); HEMOGLOBIN 9.5 gm/dL (12.0-15.0)
[2017-10-13] MEDS ORDERED: LISINOPRIL5 MG PO (11:35)
[2017-10-13] MEDS ORDERED: VITAMINC500 PO (11:42)
[2017-10-13] MEDS ORDERED: COLACE100 MG PO (11:43)
[2017-10-13 12:00] VITALS: BP 122/31
[2017-10-13 13:30] VITALS: BP 122/31
[2017-10-13 16:00] VITALS: BP 133/52
[2017-10-13 16:19] LABS: HEMATOCRIT 26.2 % (37.0-47.0); HEMOGLOBIN 8.8 gm/dL (12.0-15.0)
--- NOTE | 2017-10-24 15:52 | CON ---
[address] [address] CONSULTATION Name: TAMARA MOREAU Room: [address] [place]#: [id number] Admission: 10/12/17 Attend Phys: Rina Page Discharge: 10/13/17 Date of : 40 Report #: [id number] THIS REPORT FOR: //name// CC: Elizabeth Kaufman DATE OF SERVICE: 10/13/2017 NEPHROLOGY CONSULTATION CONSULTING PHYSICIAN: Jose Angel Kaufman DO REASON FOR CONSULTATION: Acute kidney injury and hypercalcemia. HISTORY OF PRESENT ILLNESS: A 77-year-old female who underwent a left lower extremity angiogram and had postoperative pain and hematoma and was admitted. She was noted to have some hypercalcemia with a calcium of 14 and an elevated creatinine of 1.7 for which I am asked to see her. Her calcium supplements were stopped and her numbers are improved. She is hoping to go home today. She presently has no complaints. Her daughter is present at the bedside. REVIEW OF SYSTEMS: Constitutional, psych, heme, eyes, ENT, respiratory, cardiac, GI, , endocrine, all negative except as documented above. PAST MEDICAL HISTORY: Rheumatoid arthritis, hypertension, GERD, diabetes, asthma, history of toe amputation, peripheral vascular disease. SOCIAL HISTORY: No tobacco. FAMILY HISTORY: Not pertinent in this 77-year-old female. CURRENT MEDICATIONS: Reviewed. PHYSICAL EXAMINATION: VITAL SIGNS: Blood pressure 160/43, pulse 81, temperature 36.9. GENERAL: In no acute distress. EYES: Extraocular movements intact. EARS: Externally normal. CARDIOVASCULAR: Regular rate. LUNGS: No crackles. ABDOMEN: Soft. LYMPHATICS: No significant pitting edema. PSYCHIATRIC: Awake, alert. LABORATORY DATA: Hemoglobin is 9.5, white cell count 5.7, hemoglobin 9.2, platelets 99. Sodium 137, potassium 4.3, chloride 104, bicarbonate 28, BUN 44, [place] [address] CONSULTATION Name: TAMARA MOREAU Room: [address] [place]#: [id number] Admission: 10/12/17 Attend Phys: Rina Page Discharge: 10/13/17 Date of : 40 Report #: [id number] creatinine 1.3, glucose 91, calcium 10.6. ASSESSMENT: 1. Acute kidney injury with admission creatinine of 1.7 in the setting of hypercalcemia with a calcium of 14, and lisinopril, Aldactone and Lasix use. 2. Hypercalcemia in the setting of taking Tums 4-5 pills per day as well as calcium carbonate twice a day and vitamin D. Admission calcium was 14. 3. Anemia. 4. Thrombocytopenia. 5. Rheumatoid arthritis. PLAN: 1. Renal function and hypercalcemia are better. The calcium was most likely secondary to excess calcium through her pills. She was advised to stop the vitamin D, the calcium carbonate and to avoid use of Tums. She is on a PPI and could use Zantac if needed. 2. She will need additional outpatient workup. She is to be discharged today. As an outpatient, an SPEP, immunofixation, free light chain and intact PTH will be ordered to complete the workup. 3. Defer management of anemia and thrombocytopenia to primary. 4. Anticipating that she will be discharged today, she will follow up in our office in 2 weeks' time. Suggest a repeat BMP in 1 week. If she remains inpatient, we will follow along. Thank you for requesting my opinion in the care and management of this patient. <ELECTRONICALLY SIGNED> By: Logan Jarquin MD 10/24/17 1552 1309 [id number] Jarquin MD /nt
--- NOTE | 2017-10-26 14:40 | OP ---
[facility] [address] [place] [address] OPERATIVE REPORT Name: TAMARA MOREAU Room: [address] [place]#: [id number] Admission: 10/12/17 Attend Phys: Rina Page Discharge: 10/13/17 Date of : 40 Report #: [id number] THIS REPORT FOR: //name// CC: Elizabeth Kaufman DATE OF SERVICE: 10/12/2017 PREOPERATIVE DIAGNOSIS: Peripheral vascular disease with ulcers, left lower extremity. POSTOPERATIVE DIAGNOSIS: Peripheral vascular disease with ulcers, left lower extremity. SURGEON: Gus Dow DO. MORTGAGE LOAN REVIEWER: None. PROCEDURE: 1. Ultrasound-guided access, right common femoral artery. 2. CO2 aortogram and left lower extremity angiogram catheter position third order. 3. Crosser atherectomy, left SFA and popliteal arteries. 4. Left superficial femoral artery and popliteal angioplasty and stent with LifeStent 6 x 170 and 6 x 120 LifeStents. 5. Left posterior tibial artery angioplasty with Bard VascuTrak 3 x 100 mm. 6. Limited angiogram, right common femoral artery. 7. Angio-Seal closure, right common femoral artery. ESTIMATED BLOOD LOSS: Minimal. SPECIMEN: None. ANESTHESIA: Moderate sedation. COMPLICATIONS: None. CONDITION: Stable. DISPOSITION: Observation. INDICATIONS FOR THE PROCEDURE AND CONSENT: The patient is a 77-year-old female who presented with ulcer of left lower extremity. She is status post transmetatarsal amputation. She had a new area of ulcer and opening. She had had previous angioplasty of her popliteal artery with drug-coated balloon and this had re-occluded. Recommendation for left lower extremity angiogram with [address] [address] OPERATIVE REPORT Name: TAMARA MOREAU Room: [address] [place]#: [id number] Admission: 10/12/17 Attend Phys: Rina Page Discharge: 10/13/17 Date of : 40 Report #: [id number] CO2 as the patient has a history of renal insufficiency was made. Risks and benefits were discussed, infection, bleeding, contrast nephropathy, need for additional procedures, amputation despite intervention, stroke, heart attack, . The patient wished to proceed, was consented and scheduled. PROCEDURE IN DETAIL: After timeout was performed, the patient was placed in supine position with sterile prep and drape of the anterior and bilateral groins, bilateral thighs. Ultrasound was utilized to identify the right common femoral artery and Seldinger technique used to place 6-Faroese sheath. Glidewire Advantage and UF catheter were advanced into the infrarenal aorta and a CO2 aortogram was performed. The aortogram demonstrated a calcified, but patent aorta, bilateral common internal and external iliac arteries. Glidewire Advantage and UF catheter were advanced into the left external iliac artery and left lower extremity CO2 angiogram was performed. This demonstrated the left common femoral profunda and proximal superficial femoral arteries to be widely patent without flow limitation or stenosis. There was a hint of a mid SFA stenosis and a distal SFA severe stenosis. The distal popliteal and tibial vessels were not well visualized, but were thought to be occluded. I then systemically heparinized the patient with 6000 units of heparin and advanced up and over 6-Faroese sheath over the Glidewire Advantage into the proximal superficial femoral artery. I then exchanged for a seeker catheter and advanced it down in the distal superficial femoral artery and performed a left lower extremity angiogram with contrast at this point. 20% diluted contrast injections were used. Distal angiography demonstrated an occluded popliteal artery with reconstitution of the posterior tibial and anterior tibial vessels through collaterals. I did feel that this was worth an attempt at treatment for limb salvage purposes. I then obtained the Crosser atherectomy device and activated it in the distal SFA. It traversed the popliteal occlusion down into the posterior tibial vessel without difficulty and the Usher passed easily. I then exchanged for an 0.014 wire and advanced the 3-mm VascuTrak balloon into the distal posterior tibial vessel. An angioplasty was performed throughout the occlusion including the proximal posterior tibial vessel. Repeat angiography demonstrated a flow channel. The popliteal artery had already failed a drug-coated balloon angioplasty and was heavily calcified, felt this area was best treated with stents. I obtained the 6-mm LifeStents and deployed them in standard fashion under fluoroscopic guidance to cover the entire segment of occlusion as well as heavily calcified and stenotic areas proximally. Completion angiography demonstrated excellent flow channel with inline flow to the posterior tibial vessel. I then retracted the sheath into the right external iliac artery and performed a limited angiogram of the right common femoral artery. This demonstrated a vessel appropriate for closure device and a 6-Faroese Angio-Seal was selected and [address] [address] OPERATIVE REPORT Name: TAMARA MOREAU Room: [address] [place]#: [id number] Admission: 10/12/17 Attend Phys: Jose Angel JenniferRina Ortega Discharge: 10/13/17 Date of : 40 Report #: [id number] deployed in standard fashion. Pressure was held for hemostasis. The patient tolerated procedure well and was transferred to recovery in stable condition. I should mention on completion angiography, there was an area of concern for a collateral that was bleeding. I felt that this would likely stop once the heparin wore off. I did apply a compressive Anthony to the calf prior to going to recovery. Because of this concern in this elderly patient, a period of observation was required and the patient will need to be admitted postoperatively. This was arranged in the immediate postoperative period. Thank for allowing me to participate in this patient's care. Please do not hesitate to call should any further questions or concerns. <ELECTRONICALLY SIGNED> By: Gus Dow DO 10/26/17 1440 1420 1459Gus Dow DO /nt
== END 2017-10-13 18:30 | disposition home or self-care (01) ==
LOC: M.INT 06:34 → M.TBA-ER 16:02 → M.2W 16:07
PROVIDERS: Surgery; ADMIT Internal Medicine
DX: I73.9 Peripheral vascular disease, unspecified (principal); N17.9 Acute kidney failure, unspecified; I12.9 Hypertensive chronic kidney disease with stage 1 through stage 4 chronic kidney disease, or unspecified chronic kidney disease; E11.22 Type 2 diabetes mellitus with diabetic chronic kidney disease; N18.9 Chronic kidney disease, unspecified; K21.9 Gastro-esophageal reflux disease without esophagitis; M06.9 Rheumatoid arthritis, unspecified; E83.52 Hypercalcemia; D64.9 Anemia, unspecified; J45.909 Unspecified asthma, uncomplicated; I74.3 Embolism and thrombosis of arteries of the lower extremities; D69.6 Thrombocytopenia, unspecified; Z86.11 Personal history of tuberculosis; Z87.891 Personal history of nicotine dependence

== ENCOUNTER → 2017-10-17 | Outpatient (CLI) | payer OTHER, MEDICARE ==
[~2017-10-17] MED LIST changes: +CELEXA10 MG PO; +COLACE100 MG PO; +FENOFIBRATE145 M1 PO; +FOLGARD TABLET1 EAC1 PO; +FUROSEMIDE 40 M40 M1 PO; +LISINOPRIL5 MG PO; +PREVACID 24HR15 MG PO; +PSYLLIUM FIBE0.52 GM PO; +REMERON15 M2 PO; +RIFAMPIN 300 M300 M1 PO; +UNICOMPLEX M TA1 TA1 PO
== END ==
LOC: M.WC 02:58
DX: E11.621 Type 2 diabetes mellitus with foot ulcer (principal); I70.245 Atherosclerosis of native arteries of left leg with ulceration of other part of foot; L97.521 Non-pressure chronic ulcer of other part of left foot limited to breakdown of skin; I70.235 Atherosclerosis of native arteries of right leg with ulceration of other part of foot; L97.511 Non-pressure chronic ulcer of other part of right foot limited to breakdown of skin; L97.411 Non-pressure chronic ulcer of right heel and midfoot limited to breakdown of skin; E11.622 Type 2 diabetes mellitus with other skin ulcer; L97.321 Non-pressure chronic ulcer of left ankle limited to breakdown of skin; E11.36 Type 2 diabetes mellitus with diabetic cataract; I11.0 Hypertensive heart disease with heart failure; I50.9 Heart failure, unspecified; M06.9 Rheumatoid arthritis, unspecified; J45.909 Unspecified asthma, uncomplicated; Z87.891 Personal history of nicotine dependence

== ENCOUNTER → 2017-10-24 | Outpatient (CLI) | payer OTHER, MEDICARE | LOC: M.WC 04:05 | DX: E11.621 Type 2 diabetes mellitus with foot ulcer (principal); I70.245 Atherosclerosis of native arteries of left leg with ulceration of other part of foot; L97.521 Non-pressure chronic ulcer of other part of left foot limited to breakdown of skin; I70.235 Atherosclerosis of native arteries of right leg with ulceration of other part of foot; L97.511 Non-pressure chronic ulcer of other part of right foot limited to breakdown of skin; L97.411 Non-pressure chronic ulcer of right heel and midfoot limited to breakdown of skin; E11.622 Type 2 diabetes mellitus with other skin ulcer; L97.321 Non-pressure chronic ulcer of left ankle limited to breakdown of skin; E11.36 Type 2 diabetes mellitus with diabetic cataract; I11.0 Hypertensive heart disease with heart failure; I50.9 Heart failure, unspecified; M06.9 Rheumatoid arthritis, unspecified; J45.909 Unspecified asthma, uncomplicated; Z87.891 Personal history of nicotine dependence; Z68.31 Body mass index [BMI] 31.0-31.9, adult; Z98.42 Cataract extraction status, left eye; Z98.41 Cataract extraction status, right eye ==

== ENCOUNTER → 2017-10-31 | Outpatient (CLI) | payer OTHER, MEDICARE | LOC: M.WC 03:19 | DX: E11.621 Type 2 diabetes mellitus with foot ulcer (principal); L97.411 Non-pressure chronic ulcer of right heel and midfoot limited to breakdown of skin; L97.521 Non-pressure chronic ulcer of other part of left foot limited to breakdown of skin; E11.622 Type 2 diabetes mellitus with other skin ulcer; L97.321 Non-pressure chronic ulcer of left ankle limited to breakdown of skin; I70.245 Atherosclerosis of native arteries of left leg with ulceration of other part of foot; I70.235 Atherosclerosis of native arteries of right leg with ulceration of other part of foot; L84 Corns and callosities; E11.36 Type 2 diabetes mellitus with diabetic cataract; I11.0 Hypertensive heart disease with heart failure; I50.9 Heart failure, unspecified; J45.909 Unspecified asthma, uncomplicated; K21.9 Gastro-esophageal reflux disease without esophagitis; M06.9 Rheumatoid arthritis, unspecified; Z87.891 Personal history of nicotine dependence; Z89.429 Acquired absence of other toe(s), unspecified side ==

== ENCOUNTER → 2017-11-07 | Outpatient (CLI) | payer OTHER, MEDICARE | LOC: M.WC 01:32 | DX: E11.622 Type 2 diabetes mellitus with other skin ulcer (principal); L97.321 Non-pressure chronic ulcer of left ankle limited to breakdown of skin; E11.621 Type 2 diabetes mellitus with foot ulcer; L97.521 Non-pressure chronic ulcer of other part of left foot limited to breakdown of skin; L97.411 Non-pressure chronic ulcer of right heel and midfoot limited to breakdown of skin; I70.245 Atherosclerosis of native arteries of left leg with ulceration of other part of foot; I70.234 Atherosclerosis of native arteries of right leg with ulceration of heel and midfoot; E11.36 Type 2 diabetes mellitus with diabetic cataract; I11.0 Hypertensive heart disease with heart failure; I50.9 Heart failure, unspecified; J45.909 Unspecified asthma, uncomplicated; M06.9 Rheumatoid arthritis, unspecified; Z89.422 Acquired absence of other left toe(s); Z87.891 Personal history of nicotine dependence ==

== ENCOUNTER → 2017-11-14 | Outpatient (CLI) | payer OTHER, MEDICARE | LOC: M.WC 04:33 | DX: E11.621 Type 2 diabetes mellitus with foot ulcer (principal); I70.235 Atherosclerosis of native arteries of right leg with ulceration of other part of foot; L97.511 Non-pressure chronic ulcer of other part of right foot limited to breakdown of skin; I70.245 Atherosclerosis of native arteries of left leg with ulceration of other part of foot; L97.521 Non-pressure chronic ulcer of other part of left foot limited to breakdown of skin; L97.411 Non-pressure chronic ulcer of right heel and midfoot limited to breakdown of skin; L97.321 Non-pressure chronic ulcer of left ankle limited to breakdown of skin; I11.0 Hypertensive heart disease with heart failure; I50.9 Heart failure, unspecified; M06.9 Rheumatoid arthritis, unspecified; J45.909 Unspecified asthma, uncomplicated; Z87.891 Personal history of nicotine dependence ==

== ENCOUNTER → 2017-11-21 | Outpatient (CLI) | payer OTHER, MEDICARE | LOC: M.WC 04:48 | DX: E11.621 Type 2 diabetes mellitus with foot ulcer (principal); L97.521 Non-pressure chronic ulcer of other part of left foot limited to breakdown of skin; I70.245 Atherosclerosis of native arteries of left leg with ulceration of other part of foot; E11.622 Type 2 diabetes mellitus with other skin ulcer; L97.321 Non-pressure chronic ulcer of left ankle limited to breakdown of skin; I70.234 Atherosclerosis of native arteries of right leg with ulceration of heel and midfoot; L97.411 Non-pressure chronic ulcer of right heel and midfoot limited to breakdown of skin; E11.36 Type 2 diabetes mellitus with diabetic cataract; I11.0 Hypertensive heart disease with heart failure; I50.9 Heart failure, unspecified; J45.909 Unspecified asthma, uncomplicated; K21.9 Gastro-esophageal reflux disease without esophagitis; M06.9 Rheumatoid arthritis, unspecified; Z87.891 Personal history of nicotine dependence; Z89.422 Acquired absence of other left toe(s) ==

== ENCOUNTER → 2017-11-28 | Outpatient (CLI) | payer OTHER, MEDICARE | LOC: M.WC 03:02 | DX: T87.89 Other complications of amputation stump (principal); E11.622 Type 2 diabetes mellitus with other skin ulcer; L97.321 Non-pressure chronic ulcer of left ankle limited to breakdown of skin; E11.621 Type 2 diabetes mellitus with foot ulcer; L97.521 Non-pressure chronic ulcer of other part of left foot limited to breakdown of skin; I70.245 Atherosclerosis of native arteries of left leg with ulceration of other part of foot; I70.235 Atherosclerosis of native arteries of right leg with ulceration of other part of foot; L97.511 Non-pressure chronic ulcer of other part of right foot limited to breakdown of skin; E11.36 Type 2 diabetes mellitus with diabetic cataract; I11.0 Hypertensive heart disease with heart failure; I50.9 Heart failure, unspecified; J45.909 Unspecified asthma, uncomplicated; K21.9 Gastro-esophageal reflux disease without esophagitis; M06.9 Rheumatoid arthritis, unspecified; Z87.891 Personal history of nicotine dependence; Y83.5 Amputation of limb(s) as the cause of abnormal reaction of the patient, or of later complication, without mention of misadventure at the time of the procedure ==

== ENCOUNTER → 2017-12-05 | Outpatient (CLI) | payer OTHER, MEDICARE | LOC: M.WC 05:17 | DX: E11.622 Type 2 diabetes mellitus with other skin ulcer (principal); L97.321 Non-pressure chronic ulcer of left ankle limited to breakdown of skin; E11.621 Type 2 diabetes mellitus with foot ulcer; L97.521 Non-pressure chronic ulcer of other part of left foot limited to breakdown of skin; I70.245 Atherosclerosis of native arteries of left leg with ulceration of other part of foot; E11.36 Type 2 diabetes mellitus with diabetic cataract; I11.0 Hypertensive heart disease with heart failure; I50.9 Heart failure, unspecified; J45.909 Unspecified asthma, uncomplicated; K21.9 Gastro-esophageal reflux disease without esophagitis; M06.9 Rheumatoid arthritis, unspecified; Z95.820 Peripheral vascular angioplasty status with implants and grafts; Z87.891 Personal history of nicotine dependence; Z89.422 Acquired absence of other left toe(s) ==

== ENCOUNTER → 2017-12-12 | Outpatient (CLI) | payer OTHER, MEDICARE | LOC: M.WC 04:24 | DX: E11.621 Type 2 diabetes mellitus with foot ulcer (principal); L97.521 Non-pressure chronic ulcer of other part of left foot limited to breakdown of skin; L97.321 Non-pressure chronic ulcer of left ankle limited to breakdown of skin; I70.245 Atherosclerosis of native arteries of left leg with ulceration of other part of foot; S80.812A Abrasion, left lower leg, initial encounter; E11.36 Type 2 diabetes mellitus with diabetic cataract; E11.51 Type 2 diabetes mellitus with diabetic peripheral angiopathy without gangrene; I11.0 Hypertensive heart disease with heart failure; I50.9 Heart failure, unspecified; K21.9 Gastro-esophageal reflux disease without esophagitis; J45.909 Unspecified asthma, uncomplicated; M06.9 Rheumatoid arthritis, unspecified; Z87.891 Personal history of nicotine dependence; Z89.439 Acquired absence of unspecified foot; Z95.820 Peripheral vascular angioplasty status with implants and grafts; X58.XXXA Exposure to other specified factors, initial encounter; Y93.89 Activity, other specified; Y92.89 Other specified places as the place of occurrence of the external cause; Y99.8 Other external cause status ==

== ENCOUNTER → 2017-12-19 | Outpatient (CLI) | payer OTHER, MEDICARE | LOC: M.WC 03:56 | DX: E11.622 Type 2 diabetes mellitus with other skin ulcer (principal); L97.321 Non-pressure chronic ulcer of left ankle limited to breakdown of skin; S80.812D Abrasion, left lower leg, subsequent encounter; I70.245 Atherosclerosis of native arteries of left leg with ulceration of other part of foot; E11.51 Type 2 diabetes mellitus with diabetic peripheral angiopathy without gangrene; E11.36 Type 2 diabetes mellitus with diabetic cataract; I11.0 Hypertensive heart disease with heart failure; I50.9 Heart failure, unspecified; J45.909 Unspecified asthma, uncomplicated; K21.9 Gastro-esophageal reflux disease without esophagitis; M06.9 Rheumatoid arthritis, unspecified; Z95.1 Presence of aortocoronary bypass graft; Z87.891 Personal history of nicotine dependence; Z89.421 Acquired absence of other right toe(s); X58.XXXD Exposure to other specified factors, subsequent encounter ==

== ENCOUNTER → 2017-12-26 | Outpatient (CLI) | payer OTHER, MEDICARE | LOC: M.WC 01:33 | DX: E11.622 Type 2 diabetes mellitus with other skin ulcer (principal); L97.321 Non-pressure chronic ulcer of left ankle limited to breakdown of skin; I70.243 Atherosclerosis of native arteries of left leg with ulceration of ankle; S80.812D Abrasion, left lower leg, subsequent encounter; K21.9 Gastro-esophageal reflux disease without esophagitis; Z87.891 Personal history of nicotine dependence; X58.XXXD Exposure to other specified factors, subsequent encounter ==

== ENCOUNTER → 2018-01-02 | Outpatient (CLI) | payer OTHER, MEDICARE | LOC: M.WC 05:41 | DX: E11.622 Type 2 diabetes mellitus with other skin ulcer (principal); L97.321 Non-pressure chronic ulcer of left ankle limited to breakdown of skin; S80.812D Abrasion, left lower leg, subsequent encounter; I70.245 Atherosclerosis of native arteries of left leg with ulceration of other part of foot; E11.51 Type 2 diabetes mellitus with diabetic peripheral angiopathy without gangrene; E11.36 Type 2 diabetes mellitus with diabetic cataract; I11.0 Hypertensive heart disease with heart failure; I50.9 Heart failure, unspecified; J45.909 Unspecified asthma, uncomplicated; K21.9 Gastro-esophageal reflux disease without esophagitis; M06.9 Rheumatoid arthritis, unspecified; Z87.891 Personal history of nicotine dependence; X58.XXXD Exposure to other specified factors, subsequent encounter ==

== ENCOUNTER → 2018-01-09 | Outpatient (CLI) | payer OTHER, MEDICARE | LOC: M.WC 01-02 08:30 | DX: E11.622 Type 2 diabetes mellitus with other skin ulcer (principal); L97.321 Non-pressure chronic ulcer of left ankle limited to breakdown of skin; E11.621 Type 2 diabetes mellitus with foot ulcer; I70.245 Atherosclerosis of native arteries of left leg with ulceration of other part of foot; L97.521 Non-pressure chronic ulcer of other part of left foot limited to breakdown of skin; I70.235 Atherosclerosis of native arteries of right leg with ulceration of other part of foot; L97.511 Non-pressure chronic ulcer of other part of right foot limited to breakdown of skin; S80.812D Abrasion, left lower leg, subsequent encounter; E11.51 Type 2 diabetes mellitus with diabetic peripheral angiopathy without gangrene; E11.36 Type 2 diabetes mellitus with diabetic cataract; I11.0 Hypertensive heart disease with heart failure; I50.9 Heart failure, unspecified; M06.9 Rheumatoid arthritis, unspecified; J45.909 Unspecified asthma, uncomplicated; Z87.891 Personal history of nicotine dependence; X58.XXXD Exposure to other specified factors, subsequent encounter ==

== ENCOUNTER → 2018-01-16 | Outpatient (CLI) | payer OTHER, MEDICARE | LOC: M.WC 02:59 | DX: E11.622 Type 2 diabetes mellitus with other skin ulcer (principal); L97.322 Non-pressure chronic ulcer of left ankle with fat layer exposed; E11.36 Type 2 diabetes mellitus with diabetic cataract; E11.51 Type 2 diabetes mellitus with diabetic peripheral angiopathy without gangrene; I11.0 Hypertensive heart disease with heart failure; I50.9 Heart failure, unspecified; J45.909 Unspecified asthma, uncomplicated; K21.9 Gastro-esophageal reflux disease without esophagitis; M06.9 Rheumatoid arthritis, unspecified; Z95.828 Presence of other vascular implants and grafts; Z87.891 Personal history of nicotine dependence; Z89.432 Acquired absence of left foot ==

== ENCOUNTER → 2018-01-23 | Outpatient (CLI) | payer OTHER, MEDICARE | LOC: M.WC 03:08 | DX: E11.622 Type 2 diabetes mellitus with other skin ulcer (principal); I70.243 Atherosclerosis of native arteries of left leg with ulceration of ankle; L97.322 Non-pressure chronic ulcer of left ankle with fat layer exposed; E11.36 Type 2 diabetes mellitus with diabetic cataract; E11.51 Type 2 diabetes mellitus with diabetic peripheral angiopathy without gangrene; I11.0 Hypertensive heart disease with heart failure; I50.9 Heart failure, unspecified; J45.909 Unspecified asthma, uncomplicated; K21.9 Gastro-esophageal reflux disease without esophagitis; M06.9 Rheumatoid arthritis, unspecified; Z95.820 Peripheral vascular angioplasty status with implants and grafts; Z89.422 Acquired absence of other left toe(s); Z87.891 Personal history of nicotine dependence ==

== ENCOUNTER → 2018-01-30 | Outpatient (CLI) | payer OTHER, MEDICARE | LOC: M.WC 05:03 | DX: E11.622 Type 2 diabetes mellitus with other skin ulcer (principal); L97.321 Non-pressure chronic ulcer of left ankle limited to breakdown of skin; I70.243 Atherosclerosis of native arteries of left leg with ulceration of ankle; L97.821 Non-pressure chronic ulcer of other part of left lower leg limited to breakdown of skin; E11.621 Type 2 diabetes mellitus with foot ulcer; I70.235 Atherosclerosis of native arteries of right leg with ulceration of other part of foot; L97.511 Non-pressure chronic ulcer of other part of right foot limited to breakdown of skin; E11.36 Type 2 diabetes mellitus with diabetic cataract; E11.51 Type 2 diabetes mellitus with diabetic peripheral angiopathy without gangrene; I11.0 Hypertensive heart disease with heart failure; I50.9 Heart failure, unspecified; J45.909 Unspecified asthma, uncomplicated; K21.9 Gastro-esophageal reflux disease without esophagitis; M06.9 Rheumatoid arthritis, unspecified; Z95.820 Peripheral vascular angioplasty status with implants and grafts; Z87.891 Personal history of nicotine dependence ==

== ENCOUNTER → 2018-02-06 | Outpatient (CLI) | payer OTHER, MEDICARE | LOC: M.WC 05:03 | DX: E11.622 Type 2 diabetes mellitus with other skin ulcer (principal); I70.243 Atherosclerosis of native arteries of left leg with ulceration of ankle; L97.321 Non-pressure chronic ulcer of left ankle limited to breakdown of skin; L97.821 Non-pressure chronic ulcer of other part of left lower leg limited to breakdown of skin; E11.621 Type 2 diabetes mellitus with foot ulcer; I70.235 Atherosclerosis of native arteries of right leg with ulceration of other part of foot; L97.511 Non-pressure chronic ulcer of other part of right foot limited to breakdown of skin; E11.51 Type 2 diabetes mellitus with diabetic peripheral angiopathy without gangrene; E11.36 Type 2 diabetes mellitus with diabetic cataract; I11.0 Hypertensive heart disease with heart failure; I50.9 Heart failure, unspecified; J45.909 Unspecified asthma, uncomplicated; K21.9 Gastro-esophageal reflux disease without esophagitis; M06.9 Rheumatoid arthritis, unspecified; Z89.432 Acquired absence of left foot; Z95.820 Peripheral vascular angioplasty status with implants and grafts; Z87.891 Personal history of nicotine dependence ==

== ENCOUNTER → 2018-02-13 | Outpatient (CLI) | payer OTHER, MEDICARE | LOC: M.ULTRA 03:16 | DX: S91.002A Unspecified open wound, left ankle, initial encounter (principal); I70.293 Other atherosclerosis of native arteries of extremities, bilateral legs; M71.21 Synovial cyst of popliteal space [Baker], right knee; X58.XXXA Exposure to other specified factors, initial encounter; Y93.89 Activity, other specified; Y92.89 Other specified places as the place of occurrence of the external cause; Y99.8 Other external cause status ==

== ENCOUNTER → 2018-02-20 | Outpatient (CLI) | payer OTHER, MEDICARE | LOC: M.WC 04:29 | DX: E11.621 Type 2 diabetes mellitus with foot ulcer (principal); I70.235 Atherosclerosis of native arteries of right leg with ulceration of other part of foot; L97.511 Non-pressure chronic ulcer of other part of right foot limited to breakdown of skin; E11.622 Type 2 diabetes mellitus with other skin ulcer; I70.243 Atherosclerosis of native arteries of left leg with ulceration of ankle; L97.321 Non-pressure chronic ulcer of left ankle limited to breakdown of skin; L97.821 Non-pressure chronic ulcer of other part of left lower leg limited to breakdown of skin; E11.36 Type 2 diabetes mellitus with diabetic cataract; E11.51 Type 2 diabetes mellitus with diabetic peripheral angiopathy without gangrene; I11.0 Hypertensive heart disease with heart failure; I50.9 Heart failure, unspecified; J45.909 Unspecified asthma, uncomplicated; K21.9 Gastro-esophageal reflux disease without esophagitis; M06.9 Rheumatoid arthritis, unspecified; Z95.820 Peripheral vascular angioplasty status with implants and grafts; Z89.432 Acquired absence of left foot; Z87.891 Personal history of nicotine dependence ==

== ENCOUNTER → 2018-02-27 | Outpatient (CLI) | payer OTHER, MEDICARE | LOC: M.WC 02:48 | DX: E11.622 Type 2 diabetes mellitus with other skin ulcer (principal); I70.243 Atherosclerosis of native arteries of left leg with ulceration of ankle; L97.321 Non-pressure chronic ulcer of left ankle limited to breakdown of skin; L97.821 Non-pressure chronic ulcer of other part of left lower leg limited to breakdown of skin; E11.621 Type 2 diabetes mellitus with foot ulcer; I70.235 Atherosclerosis of native arteries of right leg with ulceration of other part of foot; L97.511 Non-pressure chronic ulcer of other part of right foot limited to breakdown of skin; E11.36 Type 2 diabetes mellitus with diabetic cataract; E11.51 Type 2 diabetes mellitus with diabetic peripheral angiopathy without gangrene; I11.0 Hypertensive heart disease with heart failure; I50.9 Heart failure, unspecified; J45.909 Unspecified asthma, uncomplicated; K21.9 Gastro-esophageal reflux disease without esophagitis; M06.9 Rheumatoid arthritis, unspecified; Z95.820 Peripheral vascular angioplasty status with implants and grafts; Z87.891 Personal history of nicotine dependence ==

== ENCOUNTER → 2018-03-13 | Outpatient (CLI) | payer OTHER, MEDICARE | LOC: M.WC 01:50 | DX: E11.622 Type 2 diabetes mellitus with other skin ulcer (principal); L97.321 Non-pressure chronic ulcer of left ankle limited to breakdown of skin; L97.821 Non-pressure chronic ulcer of other part of left lower leg limited to breakdown of skin; E11.621 Type 2 diabetes mellitus with foot ulcer; I70.245 Atherosclerosis of native arteries of left leg with ulceration of other part of foot; L97.528 Non-pressure chronic ulcer of other part of left foot with other specified severity; R21 Rash and other nonspecific skin eruption; E11.51 Type 2 diabetes mellitus with diabetic peripheral angiopathy without gangrene; E11.36 Type 2 diabetes mellitus with diabetic cataract; I11.0 Hypertensive heart disease with heart failure; I50.9 Heart failure, unspecified; J45.909 Unspecified asthma, uncomplicated; M06.9 Rheumatoid arthritis, unspecified; K21.9 Gastro-esophageal reflux disease without esophagitis; Z95.820 Peripheral vascular angioplasty status with implants and grafts; Z87.891 Personal history of nicotine dependence ==

== ENCOUNTER → 2018-03-20 | Outpatient (CLI) | payer OTHER, MEDICARE | LOC: M.WC 08:30 | DX: E11.622 Type 2 diabetes mellitus with other skin ulcer (principal); L97.322 Non-pressure chronic ulcer of left ankle with fat layer exposed; L97.821 Non-pressure chronic ulcer of other part of left lower leg limited to breakdown of skin; R21 Rash and other nonspecific skin eruption; E11.51 Type 2 diabetes mellitus with diabetic peripheral angiopathy without gangrene; E11.36 Type 2 diabetes mellitus with diabetic cataract; I11.0 Hypertensive heart disease with heart failure; I50.9 Heart failure, unspecified; J45.909 Unspecified asthma, uncomplicated; K21.9 Gastro-esophageal reflux disease without esophagitis; M06.9 Rheumatoid arthritis, unspecified; Z95.820 Peripheral vascular angioplasty status with implants and grafts; Z87.891 Personal history of nicotine dependence ==

== ENCOUNTER → 2018-03-22 | Outpatient (CLI) | payer OTHER, MEDICARE | LOC: M.WC 10:48 | DX: E11.622 Type 2 diabetes mellitus with other skin ulcer (principal); L97.321 Non-pressure chronic ulcer of left ankle limited to breakdown of skin; L97.821 Non-pressure chronic ulcer of other part of left lower leg limited to breakdown of skin; E11.36 Type 2 diabetes mellitus with diabetic cataract; E11.51 Type 2 diabetes mellitus with diabetic peripheral angiopathy without gangrene; I11.0 Hypertensive heart disease with heart failure; I50.9 Heart failure, unspecified; J45.909 Unspecified asthma, uncomplicated; K21.9 Gastro-esophageal reflux disease without esophagitis; M06.9 Rheumatoid arthritis, unspecified; Z87.891 Personal history of nicotine dependence; Z95.820 Peripheral vascular angioplasty status with implants and grafts ==

== ENCOUNTER → 2018-03-27 | Outpatient (CLI) | payer OTHER, MEDICARE | LOC: M.WC 02:19 | DX: E11.622 Type 2 diabetes mellitus with other skin ulcer (principal); L97.322 Non-pressure chronic ulcer of left ankle with fat layer exposed; E11.621 Type 2 diabetes mellitus with foot ulcer; I70.245 Atherosclerosis of native arteries of left leg with ulceration of other part of foot; L97.521 Non-pressure chronic ulcer of other part of left foot limited to breakdown of skin; I70.235 Atherosclerosis of native arteries of right leg with ulceration of other part of foot; L97.511 Non-pressure chronic ulcer of other part of right foot limited to breakdown of skin; E11.36 Type 2 diabetes mellitus with diabetic cataract; I11.0 Hypertensive heart disease with heart failure; I50.9 Heart failure, unspecified; M06.9 Rheumatoid arthritis, unspecified; J45.909 Unspecified asthma, uncomplicated; Z87.891 Personal history of nicotine dependence ==

== ENCOUNTER → 2018-04-03 | Outpatient (CLI) | payer OTHER, MEDICARE | LOC: M.WC 04:34 | DX: E11.621 Type 2 diabetes mellitus with foot ulcer (principal); I70.243 Atherosclerosis of native arteries of left leg with ulceration of ankle; L97.322 Non-pressure chronic ulcer of left ankle with fat layer exposed; I70.245 Atherosclerosis of native arteries of left leg with ulceration of other part of foot; I70.235 Atherosclerosis of native arteries of right leg with ulceration of other part of foot; L97.511 Non-pressure chronic ulcer of other part of right foot limited to breakdown of skin; L97.521 Non-pressure chronic ulcer of other part of left foot limited to breakdown of skin; E11.51 Type 2 diabetes mellitus with diabetic peripheral angiopathy without gangrene; E11.36 Type 2 diabetes mellitus with diabetic cataract; I11.0 Hypertensive heart disease with heart failure; I50.9 Heart failure, unspecified; J45.909 Unspecified asthma, uncomplicated; K21.9 Gastro-esophageal reflux disease without esophagitis; M06.9 Rheumatoid arthritis, unspecified; Z95.820 Peripheral vascular angioplasty status with implants and grafts; Z87.891 Personal history of nicotine dependence ==

== ENCOUNTER → 2018-04-24 | Outpatient (CLI) | payer OTHER, MEDICARE | LOC: M.WC 04-10 04:53 | DX: E11.622 Type 2 diabetes mellitus with other skin ulcer (principal); I70.243 Atherosclerosis of native arteries of left leg with ulceration of ankle; L97.321 Non-pressure chronic ulcer of left ankle limited to breakdown of skin; E11.51 Type 2 diabetes mellitus with diabetic peripheral angiopathy without gangrene; E11.36 Type 2 diabetes mellitus with diabetic cataract; I11.0 Hypertensive heart disease with heart failure; I50.9 Heart failure, unspecified; J45.909 Unspecified asthma, uncomplicated; K21.9 Gastro-esophageal reflux disease without esophagitis; M06.9 Rheumatoid arthritis, unspecified; Z95.820 Peripheral vascular angioplasty status with implants and grafts; Z87.891 Personal history of nicotine dependence ==

== ENCOUNTER → 2018-05-01 | Outpatient (CLI) | payer OTHER, MEDICARE | LOC: M.WC 04:55 | DX: E11.622 Type 2 diabetes mellitus with other skin ulcer (principal); I70.243 Atherosclerosis of native arteries of left leg with ulceration of ankle; L97.321 Non-pressure chronic ulcer of left ankle limited to breakdown of skin; I70.245 Atherosclerosis of native arteries of left leg with ulceration of other part of foot; L97.521 Non-pressure chronic ulcer of other part of left foot limited to breakdown of skin; I70.235 Atherosclerosis of native arteries of right leg with ulceration of other part of foot; L97.511 Non-pressure chronic ulcer of other part of right foot limited to breakdown of skin; E11.51 Type 2 diabetes mellitus with diabetic peripheral angiopathy without gangrene; E11.36 Type 2 diabetes mellitus with diabetic cataract; I11.0 Hypertensive heart disease with heart failure; I50.9 Heart failure, unspecified; J45.909 Unspecified asthma, uncomplicated; K21.9 Gastro-esophageal reflux disease without esophagitis; M06.9 Rheumatoid arthritis, unspecified; Z95.820 Peripheral vascular angioplasty status with implants and grafts; Z87.891 Personal history of nicotine dependence ==

== ENCOUNTER → 2018-05-16 | Outpatient (CLI) | payer OTHER, MEDICARE | LOC: M.WC 05-08 04:54 | DX: E11.622 Type 2 diabetes mellitus with other skin ulcer (principal); L97.321 Non-pressure chronic ulcer of left ankle limited to breakdown of skin; E11.621 Type 2 diabetes mellitus with foot ulcer; I70.245 Atherosclerosis of native arteries of left leg with ulceration of other part of foot; L97.521 Non-pressure chronic ulcer of other part of left foot limited to breakdown of skin; I70.235 Atherosclerosis of native arteries of right leg with ulceration of other part of foot; L97.511 Non-pressure chronic ulcer of other part of right foot limited to breakdown of skin; E11.36 Type 2 diabetes mellitus with diabetic cataract; E11.51 Type 2 diabetes mellitus with diabetic peripheral angiopathy without gangrene; I11.0 Hypertensive heart disease with heart failure; I50.9 Heart failure, unspecified; J45.909 Unspecified asthma, uncomplicated; K21.9 Gastro-esophageal reflux disease without esophagitis; M06.9 Rheumatoid arthritis, unspecified; Z95.820 Peripheral vascular angioplasty status with implants and grafts; Z87.891 Personal history of nicotine dependence ==

== ENCOUNTER → 2018-05-22 | Outpatient (CLI) | payer OTHER, MEDICARE | LOC: M.WC 04:40 | DX: E11.622 Type 2 diabetes mellitus with other skin ulcer (principal); L97.322 Non-pressure chronic ulcer of left ankle with fat layer exposed; E11.621 Type 2 diabetes mellitus with foot ulcer; I70.245 Atherosclerosis of native arteries of left leg with ulceration of other part of foot; L97.521 Non-pressure chronic ulcer of other part of left foot limited to breakdown of skin; I70.235 Atherosclerosis of native arteries of right leg with ulceration of other part of foot; L97.511 Non-pressure chronic ulcer of other part of right foot limited to breakdown of skin; E11.51 Type 2 diabetes mellitus with diabetic peripheral angiopathy without gangrene; E11.36 Type 2 diabetes mellitus with diabetic cataract; I11.0 Hypertensive heart disease with heart failure; I50.9 Heart failure, unspecified; J45.909 Unspecified asthma, uncomplicated; K21.9 Gastro-esophageal reflux disease without esophagitis; M06.9 Rheumatoid arthritis, unspecified; Z87.891 Personal history of nicotine dependence ==

== ENCOUNTER → 2018-05-29 | Outpatient (CLI) | payer OTHER, MEDICARE | LOC: M.WC 05:31 | DX: E11.622 Type 2 diabetes mellitus with other skin ulcer (principal); L97.322 Non-pressure chronic ulcer of left ankle with fat layer exposed; E11.621 Type 2 diabetes mellitus with foot ulcer; I70.245 Atherosclerosis of native arteries of left leg with ulceration of other part of foot; L97.521 Non-pressure chronic ulcer of other part of left foot limited to breakdown of skin; I70.235 Atherosclerosis of native arteries of right leg with ulceration of other part of foot; L97.511 Non-pressure chronic ulcer of other part of right foot limited to breakdown of skin; E11.36 Type 2 diabetes mellitus with diabetic cataract; E11.51 Type 2 diabetes mellitus with diabetic peripheral angiopathy without gangrene; I11.0 Hypertensive heart disease with heart failure; I50.9 Heart failure, unspecified; J45.909 Unspecified asthma, uncomplicated; K21.9 Gastro-esophageal reflux disease without esophagitis; M06.9 Rheumatoid arthritis, unspecified; Z87.891 Personal history of nicotine dependence ==

== ENCOUNTER → 2018-06-05 | Outpatient (CLI) | payer OTHER, MEDICARE | LOC: M.WC 04:54 | DX: E11.622 Type 2 diabetes mellitus with other skin ulcer (principal); L97.321 Non-pressure chronic ulcer of left ankle limited to breakdown of skin; E11.621 Type 2 diabetes mellitus with foot ulcer; I70.245 Atherosclerosis of native arteries of left leg with ulceration of other part of foot; L97.521 Non-pressure chronic ulcer of other part of left foot limited to breakdown of skin; I70.235 Atherosclerosis of native arteries of right leg with ulceration of other part of foot; L97.511 Non-pressure chronic ulcer of other part of right foot limited to breakdown of skin; E11.36 Type 2 diabetes mellitus with diabetic cataract; E11.51 Type 2 diabetes mellitus with diabetic peripheral angiopathy without gangrene; I11.0 Hypertensive heart disease with heart failure; I50.9 Heart failure, unspecified; J45.909 Unspecified asthma, uncomplicated; K21.9 Gastro-esophageal reflux disease without esophagitis; M06.9 Rheumatoid arthritis, unspecified; Z87.891 Personal history of nicotine dependence ==

== ENCOUNTER → 2018-06-12 | Outpatient (CLI) | payer OTHER, MEDICARE | LOC: M.WC 04:16 | DX: E11.622 Type 2 diabetes mellitus with other skin ulcer (principal); L97.321 Non-pressure chronic ulcer of left ankle limited to breakdown of skin; E11.621 Type 2 diabetes mellitus with foot ulcer; I70.245 Atherosclerosis of native arteries of left leg with ulceration of other part of foot; L97.521 Non-pressure chronic ulcer of other part of left foot limited to breakdown of skin; I70.235 Atherosclerosis of native arteries of right leg with ulceration of other part of foot; L97.511 Non-pressure chronic ulcer of other part of right foot limited to breakdown of skin; E11.36 Type 2 diabetes mellitus with diabetic cataract; I11.0 Hypertensive heart disease with heart failure; I50.9 Heart failure, unspecified; J45.909 Unspecified asthma, uncomplicated; K21.9 Gastro-esophageal reflux disease without esophagitis; M06.9 Rheumatoid arthritis, unspecified; Z95.820 Peripheral vascular angioplasty status with implants and grafts; Z87.891 Personal history of nicotine dependence ==

== ENCOUNTER → 2018-06-19 | Outpatient (CLI) | payer OTHER, MEDICARE | LOC: M.WC 05:41 | DX: E11.622 Type 2 diabetes mellitus with other skin ulcer (principal); L97.321 Non-pressure chronic ulcer of left ankle limited to breakdown of skin; E11.621 Type 2 diabetes mellitus with foot ulcer; I70.233 Atherosclerosis of native arteries of right leg with ulceration of ankle; I70.245 Atherosclerosis of native arteries of left leg with ulceration of other part of foot; L97.521 Non-pressure chronic ulcer of other part of left foot limited to breakdown of skin; I70.235 Atherosclerosis of native arteries of right leg with ulceration of other part of foot; L97.511 Non-pressure chronic ulcer of other part of right foot limited to breakdown of skin; E11.51 Type 2 diabetes mellitus with diabetic peripheral angiopathy without gangrene; E11.36 Type 2 diabetes mellitus with diabetic cataract; I11.0 Hypertensive heart disease with heart failure; I50.9 Heart failure, unspecified; J45.909 Unspecified asthma, uncomplicated; M06.9 Rheumatoid arthritis, unspecified; Z87.891 Personal history of nicotine dependence; Z95.820 Peripheral vascular angioplasty status with implants and grafts; K21.9 Gastro-esophageal reflux disease without esophagitis ==

== ENCOUNTER → 2018-07-03 | Outpatient (CLI) | payer OTHER, MEDICARE | LOC: M.WC 05:09 | DX: E11.622 Type 2 diabetes mellitus with other skin ulcer (principal); L97.321 Non-pressure chronic ulcer of left ankle limited to breakdown of skin; E11.621 Type 2 diabetes mellitus with foot ulcer; I70.245 Atherosclerosis of native arteries of left leg with ulceration of other part of foot; L97.521 Non-pressure chronic ulcer of other part of left foot limited to breakdown of skin; I70.235 Atherosclerosis of native arteries of right leg with ulceration of other part of foot; L97.511 Non-pressure chronic ulcer of other part of right foot limited to breakdown of skin; E11.51 Type 2 diabetes mellitus with diabetic peripheral angiopathy without gangrene; E11.36 Type 2 diabetes mellitus with diabetic cataract; I11.0 Hypertensive heart disease with heart failure; I50.9 Heart failure, unspecified; J45.909 Unspecified asthma, uncomplicated; K21.9 Gastro-esophageal reflux disease without esophagitis; M06.9 Rheumatoid arthritis, unspecified; Z87.891 Personal history of nicotine dependence; Z95.820 Peripheral vascular angioplasty status with implants and grafts ==

== ENCOUNTER → 2018-07-12 | Outpatient (CLI) | payer OTHER, MEDICARE | LOC: M.WC 07-10 08:30 | DX: E11.622 Type 2 diabetes mellitus with other skin ulcer (principal); L97.321 Non-pressure chronic ulcer of left ankle limited to breakdown of skin; E11.621 Type 2 diabetes mellitus with foot ulcer; I70.245 Atherosclerosis of native arteries of left leg with ulceration of other part of foot; L97.521 Non-pressure chronic ulcer of other part of left foot limited to breakdown of skin; I70.235 Atherosclerosis of native arteries of right leg with ulceration of other part of foot; L97.511 Non-pressure chronic ulcer of other part of right foot limited to breakdown of skin; E11.36 Type 2 diabetes mellitus with diabetic cataract; E11.51 Type 2 diabetes mellitus with diabetic peripheral angiopathy without gangrene; I11.0 Hypertensive heart disease with heart failure; I50.9 Heart failure, unspecified; J45.909 Unspecified asthma, uncomplicated; M06.9 Rheumatoid arthritis, unspecified; K21.9 Gastro-esophageal reflux disease without esophagitis; Z95.820 Peripheral vascular angioplasty status with implants and grafts; Z87.891 Personal history of nicotine dependence ==

== ENCOUNTER → 2018-07-17 | Outpatient (CLI) | payer OTHER, MEDICARE | LOC: M.WC 05:05 | DX: E11.622 Type 2 diabetes mellitus with other skin ulcer (principal); L97.321 Non-pressure chronic ulcer of left ankle limited to breakdown of skin; E11.621 Type 2 diabetes mellitus with foot ulcer; I70.245 Atherosclerosis of native arteries of left leg with ulceration of other part of foot; L97.521 Non-pressure chronic ulcer of other part of left foot limited to breakdown of skin; I70.235 Atherosclerosis of native arteries of right leg with ulceration of other part of foot; L97.511 Non-pressure chronic ulcer of other part of right foot limited to breakdown of skin; E11.36 Type 2 diabetes mellitus with diabetic cataract; E11.51 Type 2 diabetes mellitus with diabetic peripheral angiopathy without gangrene; I11.0 Hypertensive heart disease with heart failure; I50.9 Heart failure, unspecified; J45.909 Unspecified asthma, uncomplicated; K21.9 Gastro-esophageal reflux disease without esophagitis; M06.9 Rheumatoid arthritis, unspecified; Z95.820 Peripheral vascular angioplasty status with implants and grafts; Z87.891 Personal history of nicotine dependence ==

== ENCOUNTER → 2018-07-31 | Outpatient (CLI) | payer OTHER, MEDICARE | LOC: M.WC 05:19 | DX: E11.622 Type 2 diabetes mellitus with other skin ulcer (principal); L97.322 Non-pressure chronic ulcer of left ankle with fat layer exposed; E11.621 Type 2 diabetes mellitus with foot ulcer; I70.245 Atherosclerosis of native arteries of left leg with ulceration of other part of foot; L97.511 Non-pressure chronic ulcer of other part of right foot limited to breakdown of skin; I70.235 Atherosclerosis of native arteries of right leg with ulceration of other part of foot; L97.521 Non-pressure chronic ulcer of other part of left foot limited to breakdown of skin; E11.36 Type 2 diabetes mellitus with diabetic cataract; E11.51 Type 2 diabetes mellitus with diabetic peripheral angiopathy without gangrene; I11.0 Hypertensive heart disease with heart failure; I50.9 Heart failure, unspecified; K21.9 Gastro-esophageal reflux disease without esophagitis; M06.9 Rheumatoid arthritis, unspecified; J45.909 Unspecified asthma, uncomplicated; Z87.891 Personal history of nicotine dependence ==

== ENCOUNTER → 2018-08-14 | Outpatient (CLI) | payer OTHER, MEDICARE | LOC: M.WC 08-07 08:30 | DX: E11.622 Type 2 diabetes mellitus with other skin ulcer (principal); L97.321 Non-pressure chronic ulcer of left ankle limited to breakdown of skin; E11.621 Type 2 diabetes mellitus with foot ulcer; I70.245 Atherosclerosis of native arteries of left leg with ulceration of other part of foot; L97.521 Non-pressure chronic ulcer of other part of left foot limited to breakdown of skin; I70.235 Atherosclerosis of native arteries of right leg with ulceration of other part of foot; L97.511 Non-pressure chronic ulcer of other part of right foot limited to breakdown of skin; E11.36 Type 2 diabetes mellitus with diabetic cataract; E11.51 Type 2 diabetes mellitus with diabetic peripheral angiopathy without gangrene; I11.0 Hypertensive heart disease with heart failure; I50.9 Heart failure, unspecified; J45.909 Unspecified asthma, uncomplicated; K21.9 Gastro-esophageal reflux disease without esophagitis; M06.9 Rheumatoid arthritis, unspecified; Z98.41 Cataract extraction status, right eye; Z98.42 Cataract extraction status, left eye; Z87.891 Personal history of nicotine dependence ==

== ENCOUNTER → 2018-08-28 | Outpatient (CLI) | payer OTHER, MEDICARE | LOC: M.WC 05:09 | DX: E11.622 Type 2 diabetes mellitus with other skin ulcer (principal); L97.321 Non-pressure chronic ulcer of left ankle limited to breakdown of skin; E11.621 Type 2 diabetes mellitus with foot ulcer; I70.245 Atherosclerosis of native arteries of left leg with ulceration of other part of foot; L97.521 Non-pressure chronic ulcer of other part of left foot limited to breakdown of skin; I70.235 Atherosclerosis of native arteries of right leg with ulceration of other part of foot; L97.511 Non-pressure chronic ulcer of other part of right foot limited to breakdown of skin; E11.51 Type 2 diabetes mellitus with diabetic peripheral angiopathy without gangrene; E11.36 Type 2 diabetes mellitus with diabetic cataract; I11.0 Hypertensive heart disease with heart failure; I50.9 Heart failure, unspecified; J45.909 Unspecified asthma, uncomplicated; K21.9 Gastro-esophageal reflux disease without esophagitis; M06.9 Rheumatoid arthritis, unspecified; Z95.820 Peripheral vascular angioplasty status with implants and grafts; Z87.891 Personal history of nicotine dependence ==

== ENCOUNTER → 2018-10-09 | Outpatient (CLI) | payer OTHER, MEDICARE | LOC: M.WC 05:23 | DX: E11.622 Type 2 diabetes mellitus with other skin ulcer (principal); L97.321 Non-pressure chronic ulcer of left ankle limited to breakdown of skin; E11.621 Type 2 diabetes mellitus with foot ulcer; I70.245 Atherosclerosis of native arteries of left leg with ulceration of other part of foot; L97.511 Non-pressure chronic ulcer of other part of right foot limited to breakdown of skin; I70.235 Atherosclerosis of native arteries of right leg with ulceration of other part of foot; L97.521 Non-pressure chronic ulcer of other part of left foot limited to breakdown of skin; E11.36 Type 2 diabetes mellitus with diabetic cataract; E11.51 Type 2 diabetes mellitus with diabetic peripheral angiopathy without gangrene; I11.0 Hypertensive heart disease with heart failure; I50.9 Heart failure, unspecified; J45.909 Unspecified asthma, uncomplicated; K21.9 Gastro-esophageal reflux disease without esophagitis; M06.9 Rheumatoid arthritis, unspecified; Z95.818 Presence of other cardiac implants and grafts; Z87.891 Personal history of nicotine dependence ==